=== PATIENT | female | born 1990 | race Caucasian/White ===

== ENCOUNTER 2023-05-29 08:51 | Outpatient (OUT) | payer BC, SELFPAY ==
--- NOTE | 2023-05-29 | US_ITS ---
The [address] [address] Patient Name: TATIANA MCCONNELL MRN: [id number] date: 1990 Sex: F Assigned Patient Location: US Current Patient Location: US Accession/Order Number: [id number] Exam Date: 05/29/2023 09:00 Report Date: 05/29/2023 10:01 At the request of: AMY CALLOWAY Procedure: US pelvis transvaginal EXAMINATION: US pelvis transvaginal HISTORY: PCOS E28.2 , infertility COMPARISON: No relevant comparison available. TECHNIQUE: Transabdominal and/or transvaginal sonographic examination was performed as indicated by examination type. FINDINGS: UTERUS: Normal size and appearance. Uterus size: 8.0 x 3.9 x 4.7 cm ENDOMETRIUM: Homogeneous echotexture with small amount of fluid within cavity versus cystic fluid collection. Endometrial thickness: 11 mm RIGHT OVARY: Contains a 2.7 cm diameter thick walled cystic structure with increased surrounding blood flow. Duplex Doppler demonstrates normal waveform and flow; resistive index 0.4. Ovary size: 3.6 x 3.3 x 3.2 cm LEFT OVARY: Normal size and appearance. Duplex Doppler demonstrates normal waveform and flow; resistive index 0.4. Ovary size: 2.7 x 1.7 x 1.6 cm CUL-DE-SAC: Unremarkable. No significant free fluid. BLADDER: Unremarkable. OTHER: None. US/US pelvis transvaginal IMPRESSION: 1. Right ovary contains a complex cyst; nonspecific but suggestive of a corpus lutein cyst. There is also fluid versus cyst within the endometrial cavity. Consider correlation with beta hCG levels. 2. No significant number of small peripheral follicles within ovaries to suggest polycystic ovarian syndrome. Electronically authenticated by: CATIA DENSON Date: 05/29/2023 10:01
[2023-05-29 10:06] LABS: Basophils Percent Auto 0.5 % (0.2-2.0); Eosinophils Absolute Auto 0.1 10^3/uL (0.0-0.7); Eosinophils Percent Auto 1.7 % (0.9-7.0); Hematocrit 40.1 % (36.0-48.0); Hemoglobin 13.1 g/dL (12.0-16.0); Immature Granulocytes Abs Auto 0.01 10^3/uL (0.00-0.03); Immature Granulocytes Pct Auto 0.2 % (0.0-0.5); Lymphocytes Absolute Auto 1.7 10^3/uL (1.2-3.8); Lymphocytes Percent Auto 26.5 % (20.5-60.0); Mean Corpuscular HGB Conc 32.7 g/dL (29.9-35.2); Mean Corpuscular Hemoglobin 28.2 pg (26.7-34.0); Mean Corpuscular Volume 86.4 fL (81.0-99.0); Mean Platelet Volume 8.6 fL (9.5-13.5); Monocytes Absolute Auto 0.4 10^3/uL (0.3-0.8); Monocytes Percent Auto 6.2 % (1.7-12.0); Neutrophils Absolute Auto 4.1 10^3/uL (1.4-6.5); Neutrophils Percent Auto 64.9 % (43.0-75.0); Platelet Count 297 10^3/uL (150-450); Red Blood Count 4.64 10^6/uL (4.20-5.40); Red Cell Distribution Width 12.7 % (11.0-15.0); White Blood Count 6.3 10^3/uL (4.0-11.0)
[2023-05-29 10:33] LABS: Estimated Average Glucose 97 mg/dL
[2023-05-29 10:38] LABS: Free T4 0.73 ng/dL (0.76-1.46)
[2023-05-29 10:40] LABS: HCG Quantitative <1 mIU/mL; Thyroid Stimulating Hormone 4.333 uIU/mL (0.358-3.740)
[2023-05-30 04:07] LABS: DHEA-Sulfate 88.6 ug/dL (84.8-378.0); FSH 3.9 mIU/mL (.); Luteinizing Hormone(LH) 4.6 mIU/mL (.); Progesterone 12.2 ng/mL (.)
[2023-06-01 12:11] LABS: Anti-Mullerian Hormone (AMH) 1.68 ng/mL (.)
[2023-06-02 06:08] LABS: DHEA, Serum 217 ng/dL (31-701)
== END 2023-05-29 08:52 | disposition home or self-care (01) ==
LOC: US 08:58
PROVIDERS: Visit Provider Obstetrics & Gynecology
DX: E28.2 Polycystic ovarian syndrome (principal); N97.0 Female infertility associated with anovulation
CPT/HCPCS: 36415; 76830; 82626; 82627; 83001; 83002; 83036; 84144; 84439; 84443; 84702; 85025; 99999

== ENCOUNTER 2023-07-27 15:10 | Outpatient (OUT) | payer BC, SELFPAY ==
[2023-07-28 09:11] LABS: Progesterone 12.9 ng/mL (.)
== END 2023-07-27 15:11 | disposition home or self-care (01) ==
LOC: LAB 15:10
PROVIDERS: Visit Provider Obstetrics & Gynecology
DX: N97.0 Female infertility associated with anovulation (principal); N97.9 Female infertility, unspecified; E28.2 Polycystic ovarian syndrome
CPT/HCPCS: 36415; 84144

== ENCOUNTER 2023-08-21 15:59 | Outpatient (OUT) | payer BC, SELFPAY ==
--- OUTSIDE RECORDS SUMMARY | 2023-08-21 16:02 | XMS_ITS | CCD ---
Author Name Unknown Address [address] [facility] [address] [facility] [address] [place] [address] Organization [facility] Care Team Providers Care Regional Business Development Manager Name Role Phone No, Physician Primary Care Provider Unavailabl e RADHALON STALLWORTH FKavon Noriega Admitting Unavailabl e RADHA, LON Noriega Attending Unavailabl e NO, PHYSICIAN Primary Care Unavailable RADHA, LON F. SKavon Admitting Unavailabl e RADHA, LON FKavon Noriega Attending Unavailabl e NO, PHYSICIAN Primary Care Unavailable RADHA, LON F. Hari Attending Unavailabl e RADHA, LON F. Hari Attending Unavailabl e RADHALON FKavon Noriega Attending Unavailabl e RADHA, LON FKavon Noriega Attending Unavailabl e RADHA, LON FKavon SKavon Attending Unavailabl e RADHA, LON FKavon SKavon Attending Unavailabl e NO, PHYSICIAN Primary Care Unavailable Unavailable Primary Care Provider Unavailabl e ANGEL GILL Referring Unavailable CONNIE NORWOOD Referring Unavailable J LUIS VEGA Attending Unavailable NO, PHYSICIAN Primary Care Unavailable No, Physician Primary Care Provider Unavailabl e Medications Current Medications Medication Drug Class(es) Dates Sig (Normalized) Sig (Original) Vit-Fe Fumarate-FA ( VITAMIN PO) (2 sources) take 1 tablet by efraín th once daily Vit-Fe Fumarate-FA ( VITAMIN PO) Take 1 tablet by mouth daily 0 Active vitamin with Ca-Iron-FA 27-1 mg Tab (3 sources) take 1 tablet by efraín th once daily vitamin with Ca-Iron-FA 27-1 mg Tab Take 1 (one) tablet by mouth daily . 0 Active take 1 tablet by mouth once ed y vitamin with Ca-Iron-FA 27-1 mg Tab Take 1 tablet by mouth daily . 0 Active Completed/Discontinued Medications Medication Drug Class(es) Dates Sig (Normalized) Sig (Original) aluminum hydroxide 40 mg/ml / magnesium hydroxide 40 mg/ml / simethicone 4 mg/ml oral suspension (1 source) Start: 12-23-2019 End: 12-24-2019 take 30 mL by mouth every four hours as needed aluminum-magnesium hydroxide-simethicon e (MAALOX PLUS) 200-200-20 mg/5 mL suspension 30 mL calcium chloride 0.0014 meq/ml / potassium chloride 0.004 meq/ml / sodium chloride 0.103 meq/ml / sodium lactate 0.028 meq/ml injectable solution (2 sources) Start: 12-22-2019 End: 12-24-2019 lactated Ringers infusion diphenhydrAMINE (1 source) Histamine-1 Receptor Antagonist Start: 12-22-2019 End: 12-24-2019 take 25 mg intravenous route every six hours as needed 25 mg, Intravenous, Every 6 hours PRN, itching, Starting [facility] 12/22/19 at 1623, Sign and Release For itching while Epidural Orders in effect if nalbuphine (NUBAIN) ineffective or not ordered. For IV administration, give at a rate less than or equal to 25 mg/min diphenhydrAMINE (BENADRYL) oral solid 25 mg (1 source) Start: 12-23-2019 End: 12-24-2019 take 25 mg by mouth every six hours as needed diphenhydrAMINE (BENADRYL) oral solid 25 mg docusate sodium 100 mg oral capsule (1 source) Start: 12-23-2019 End: 12-24-2019 docusate sodium (COLACE) capsule 100 mg ferrous sulfate 325 mg oral tablet (1 source) Start: 12-23-2019 End: 12-24-2019 ferrous sulfate tablet 325 mg ibuprofen 400 mg oral tablet (1 source) Nonsteroidal Anti-inflammatory Drug Start: 12-23-2019 End: 12-24-2019 take 1 tablet by mouth every four hours as needed ibuprofen (ADVIL,MOTRIN) tablet 400 mg 1 ml nalbuphine hydrochloride 10 mg/ml injection (2 sources) Opioid Agonist/Antagonis t Start: 12-22-2019 End: 12-22-2019 nalbuphine (NUBAIN) 10 mg/mL injection - ADS Override Pull Start: 12-22-2019 End: 12-24-2019 take 10 mg intravenous route every two hours as needed nalbuphine (NUBAIN) injection 10 mg 2 ml ondansetron 2 mg/ml injection (1 source) Serotonin-3 Receptor Antagonist Start: 12-23-2019 End: 12-24-2019 take 4 mg intravenous route every six hours as needed 4 mg, Intravenous, Every 6 hours PRN, nausea, vomiting, Starting Thu12/23/19 at 0934, PACU to Post Procedure ondansetron (ZOFRAN-ODT) disintegrating tablet 4 mg (1 source) Start: 12-22-2019 End: 12-24-2019 take 1 tablet by mouth every six hours as needed ondansetron (ZOFRAN-ODT) disintegrating tablet 4 mg oxytocin in lactated ringers (PITOCIN) 20 unit/1,000 mL infusion (2 sources) Start: 12-22-2019 End: 12-23-2019 oxytocin in lactated ringers (PITOCIN) 20 unit/1,000 mL infusion Start: 12-22-2019 End: 12-24-2019 oxytocin in lactated ringers (PITOCIN) 20 unit/1,000 mL infusion oxytocin in lactated ringers (PITOCIN) 20 unit/1,000 mL infusion - ADS Override Pull (1 source) Start: 12-22-2019 End: 12-22-2019 oxytocin in lactated ringers (PITOCIN) 20 unit/1,000 mL infusion - ADS Override Pull vitamin with Ca-Iron-FA tablet 1 tablet (1 source) Start: 12-23-2019 End: 12-24-2019 vitamin with Ca-Iron-FA tablet 1 tablet 2 ml rho(d) immune globulin, human 750 unt/ml prefilled syringe (1 source) Human Immunoglobulin G Start: 12-23-2019 End: 12-23-2019 rho(d) immune globulin (RHOPHYLAC) injection 300 mcg rho(d) immune globulin (RHOPHYLAC) injection 300 mcg (1 source) Start: 12-23-2019 End: 12-24-2019 inject 300 ug by intramuscular injection every twenty-four hours as needed rho(d) immune globulin (RHOPHYLAC) injection 300 mcg 200 ml ropivacaine hydrochloride 2 mg/ml injection (1 source) Amide Local Anesthetic Start: 12-22-2019 End: 12-24-2019 Epidural, Continuous, Starting Danna 12/22/19 at 1715, Sign and Release Only the patient is permitted to push the PCEA button. Continous Infusion: 8 mL/hr PCEA Bolus Dose: 5 mL PCEA Bolus Lockout Interval: 15 minutes Number of Boluses per Hour: 4 simethicone 80 mg chewable tablet (1 source) Start: 12-23-2019 End: 12-24-2019 simethicone (MYLICON) chewable tablet 80 mg 1000 ml sodium chloride 9 mg/ml injection (2 sources) Start: 12-23-2019 End: 12-24-2019 sodium chloride 0.9% (NS) Start: 12-22-2019 End: 12-24-2019 sodium chloride (PF) (NS) fl ush 5 mL Problems Active Problems Problem Classification Problem Date Documented Da te Episodic/Chronic Female infertility (1 source) Anovulation; Translations: [Female infertility associated with anovulation] Chronic Immunizations and screening for infectious disease (1 source) Contact with and (suspected) exposure to other viral communicable diseases; Translations: [Suspected COVID-19 virus infection] Episodic Other nervous system disorders (1 source) Loss of taste; Translations: [Loss of taste] Episodic Other nervous system disorders (1 source) Loss of sense of smell; Translations: [Loss of smell] Episodic Unclassified (4 sources) Patient encounter status; Translations: [Encounter for elective induction of labor] Onset: 12-22-2019 12-22-2019 Viral infection (1 source) Viral disease; Translations: [Viral illness] Episodic Past or Other Problems Problem Classification Problem Date Documented Da te Episodic/Chronic Other and delivery including normal (1 source) Patient encounter status; Translations: [Encounter for supervision of normal , unspecified, unspecified trimester] Onset: 12-22-2019 12-22-2019 Episodic Results Test Name Value Interpretation Reference Range Facility [id number] 08-05-2020 SARS-CoV-2 Normal [facility] Comment on above: Performed By: #### C OVID #### [facility] [place] [address] [place] [id number] Remote Operations Producer: Eliezer Mitchell MD SARS-CoV-2 DETECTED [facility] Comment on above: Result Comment: The specimen is POSITIVE for SARS-Cov-2, the novel coronavirus associated with COVID-19. Jeevan SARS-CoV-2 for use on the Jeevan SynapSense0/8800 Systems is a real-time RT-PCR test intended for the qualitative detection of nucleic acids from SARS-CoV-2 in clinician-collected nasal, nasopharyngeal, and oropharyngeal swab specimens from individuals who meet COVID-19 clinical and/or epidemiological criteria. Jeevan SARS-CoV-2 is for use only under Emergency Use Authorization (EUA) in laboratories certified under Clinical Laboratory Improvement Amendments of 1988 (CLIA), 42 U.S.C. ?263a, that meet requirements to perform high or moderate complexity tests. An individual without symptoms of COVID-19 and who is not shedding SARS-CoV-2 virus would expect to have a negative (not detected) result in this assay. Fact sheet for Healthcare Providers: https://www.fda.gov/media/225328/download Fact sheet for Patients: https://www.fda.gov/media/099227/download METHODOLOGY: RT-PCR Results reported to the appropriate Health Department Performed By: #### C OVID #### [address] [id number] Remote Operations Producer: Eliezer Mitchell MD SARS-CoV-2,Rapid Normal [facility] Comment on above: Performed By: #### C OVID #### [facility] [place] [address] [place] [id number] Remote Operations Producer: Eliezer Mitchell MD SARS-CoV-2 Source .NASOPHARYNGEAL SWAB Normal [facility] Comment on above: Performed By: #### C OVID #### [address] [place] [address] Remote Operations Producer: Eliezer Mitchell MD [id number] 07-11-2020 SARS-CoV-2 Not Detected Normal Not Detected [facility] Comment on above: Result Comment: (NOT E) This nucleic acid amplification test was developed and its performance characteristics determined by [employer]. Nucleic acid amplification tests include PCR and TMA. This test has not been FDA cleared or approved. This test has been authorized by FDA under an Emergency Use Authorization (EUA). This test is only authorized for the duration of time the declaration that circumstances exist justifying the authorization of the emergency use of in vitro diagnostic tests for detection of SARS-CoV-2 virus and/or diagnosis of COVID-19 infection under section 564(b)(1) of the Act, 21 U.S.C. 360bbb-3(b) (1), unless the authorization is terminated or revoked sooner. When diagnostic testing is negative, the possibility of a false negative result should be considered in the context of a patient's recent exposures and the presence of clinical signs and symptoms consistent with COVID-19. An individual without symptoms of COVID- 19 and who is not shedding SARS-CoV-2 virus would expect to have a negative (not detected) result in this assay. Performed At: [facility] [address] [facility] [place] [id number] Sofiya Arthur MD Ph:[phone] Performed By: #### A COV #### [facility] [address] [place], [place] [id number] Remote Operations Producer: Shankar Beal MD CBC WITH AUTO DIFFERENTIALon 12-23-2019 Basophils (Bld) [#/Vol] 0.02 10*3/uL [facility] Basophils/100 WBC (Bld) 0.1 % [facility] Eosinophils (Bld) [#/Vol] 0.09 10*3/uL [facility] Eosinophils/100 WBC (Bld) 0.6 % [facility] Erythrocyte distribution width (RBC) [Entitic vol] 13.3 % 11.6 - 14.8 % [facility] Hematocrit (Bld) [Volume fraction] 33.0 % Low 36 - 46 % [facility] Hemoglobin (Bld) [Mass/Vol] 11.2 g/dL Low 12 - 16 g/dL [facility] Immature granulocytes (Bld) [#/Vol] 0.09 10*3/uL [facility] Immature granulocytes/100 WBC (Bld) 0.60 % [facility] Comment on above: The IG parameter is the percentage of metamyelocytes, myelocytes, and promyelocytes. Interpretation and review of laboratory results Abnormal [facility] Lymphocytes (Bld) [#/Vol] 1.62 10*3/uL [facility] Lymphocytes/100 WBC (Bld) 11.6 % [facility] MCH (RBC) [Entitic mass] 29.6 pg 26 - 34 pg [facility] MCHC (RBC) [Mass/Vol] 33.9 g/dL 31 - 37 g/dL [facility] MCV (RBC) [Entitic vol] 87.1 fL 80 - 100 fL [facility] Monocytes (Bld) [#/Vol] 1.03 10*3/uL High [facility] Monocytes/100 WBC (Bld) 7.4 % [facility] Neutrophils (Bld) [#/Vol] 11.10 10*3/uL High [facility] Neutrophils/100 WBC (Bld) 79.7 % [facility] Platelet mean volume (Bld) [Entitic vol] 8.9 fL Low 9 - 15.5 fL [facility] Platelets (Bld) [#/Vol] 231 10*3/uL [facility] RBC (Bld) [#/Vol] 3.79 10*6/uL Low [facility] WBC (Bld) [#/Vol] 13.95 10*3/uL [facility] RhIG Evaluationon 12-23-2019 Rh immune globulin candidate (yes/no) Ql RhIG Candidacy [facility] 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 Patient is a candidate for 1 vial of Rh Immune Globulin. [facility] Antibody Identificationon Blood group antibodies identified Nom Anti-Rhogam [facility] The anti-D detected in this patient is presumably caused by a recent Rh Immune Globulin injection.It is unlikely that this represents a clinically significant antibody. [facility] CBCon 12-22-2019 Erythrocyte distribution width (RBC) [Entitic vol] 13.1 % 11.6 - 14.8 % [facility] Hematocrit (Bld) [Volume fraction] 35.7 % Low 36 - 46 % [facility] Hemoglobin (Bld) [Mass/Vol] 12.6 g/dL 12 - 16 g/dL [facility] Interpretation and review of laboratory results Abnormal [facility] MCH (RBC) [Entitic mass] 29.9 pg 26 - 34 pg [facility] MCHC (RBC) [Mass/Vol] 35.3 g/dL 31 - 37 g/dL [facility] MCV (RBC) [Entitic vol] 84.8 fL 80 - 100 fL [facility] Platelet mean volume (Bld) [Entitic vol] 9.0 fL 9 - 15.5 fL [facility] Platelets (Bld) [#/Vol] 233 10*3/uL [facility] RBC (Bld) [#/Vol] 4.21 10*6/uL [facility] ealth WBC (Bld) [#/Vol] 15.15 10*3/uL High [facility] Draw [address] [place] Top Tubes (MH)on 12-22-2019 ABO and Rh group Nom (Bld) A Negative [facility] Blood group antibody screen Ql Positive [facility] Type and Screenon 12-22-2019 ABO and Rh group Nom (Bld) A Negative [facility] Blood group antibody screen Ql Positive [facility] Specimen Expires 12/25/2019 23:59 EST [facility] Vital Signs Date Time Vital Sign Value Performing Clinician Faci lity 12-24-2019 08:13-0400 Body Temperature 97.59 [degF] [facility] 12-24-2019 08:13-0400 BP Diastolic 67 mm[Hg] [facility] 12-24-2019 08:13-0400 BP Systolic 110 mm[Hg] [facility] 12-24-2019 08:13-0400 Pulse (Heart Rate) 78 /min [facility] 12-24-2019 08:13-0400 Pulse Oximetry 98 % [facility] 12-24-2019 08:13-0400 Respiratory Rate 18 /min [facility] 12-22-2019 11:30-0400 BMI (Body Mass Index) 33.41 kg/m2 [facility] 12-22-2019 11:30-0400 Body weight 93.89 kg [facility] 12-22-2019 11:30-0400 Height 167.6 cm [facility] 12-21-2019 16:03-0400 BMI (Body Mass Index) 33.73 kg/m2 [facility] 12-21-2019 16:03-0400 Body weight 94.8 kg [facility] 12-21-2019 16:03-0400 Height 167.6 cm [facility] 12-21-2019 16:02-0400 Body [facility] 99.19 [degF[facility] 12-21-2019 16:02-0400 BP Diastolic 78 mm[Hg] Lon Garcia [facility] 12-21-2019 16:02-0400 BP Systolic 115 mm[Hg] Lon Garcia [facility] 12-21-2019 16:02-0400 Pulse (Heart Rate) 92 /min Lon Garcia [facility] 12-21-2019 16:02-0400 Pulse Oximetry 98 % Lon Garcia [facility] 12-21-2019 16:02-0400 Respiratory Rate 18 /min Lonsahara Garcia [facility] Encounters Encounter Date Encounter Type Care Provider Facility Start: 08-25-2022 Orders Only Dina Johnston CNM Work Phone: [facility] Comment on above: Anovulation (Primary Dx) Start: 04-04-2022 ambulatory [facility] Start: 08-04-2020 End: 08-05-2020 Patient encounter procedure [facility] Start: 08-04-2020 End: 08-04-2020 Subsequent hospital visit by physician [facility] Comment on above: Suspected COVID-19 v irus infection; Loss of taste; Loss of smell Start: 07-09-2020 End: 07-10-2020 Patient encounter procedure ANGEL R [facility] Start: 07-09-2020 End: 07-09-2020 Subsequent hospital visit by physician [facility] Comment on above: Viral illness Start: 02-06-2020 End: 02-07-2020 Patient encounter procedure LON PhamKavon GARCIA [facility] Start: 12-22-2019 End: 12-24-2019 [facility] Start: 12-22-2019 End: 12-24-2019 Evaluation and management of inpatient Lonsahara BarajasKavon IbarraRadha Work Phone: [facility] Start: 12-21-2019 End: 12-21-2019 Patient encounter procedure LON Aleyda BarajasKavon [facility] Start: 12-21-2019 End: 12-21-2019 Subsequent hospital visit by physician Lon Garcia Work Phone: [facility] Start: 11-18-2019 End: 11-18-2019 Patient encounter procedure LON Noriega [facility] Start: 09-27-2019 End: 09-27-2019 Patient encounter procedure LONSAHARA Noriega [facility] Start: 07-19-2019 End: 07-20-2019 Patient encounter procedure LONSAHARA Noriega [facility] Start: 06-10-2019 End: 06-16-2019 Patient encounter procedure LONSAHARA Noriega [facility] Procedures Date Procedure Procedure Detail Performing Clinician Start: 08-04-2020 COVID-19 AMBULATORY JERAMIE GILL Start: 07-09-2020 COVID-19 AMBULATORY JERAMIE GILL Start: 02-03-2020 Microscopic observat ion [Identifier] in Cervix by Cyto stain Dina WEBER Work Phone: Start: 12-23-2019 Complete blood count with white cell differential, automated Celi Mayer Work Phone: Start: 12-23-2019 Complete blood count with white cell differential, manual Celi Mayer Work Phone: Start: 12-22-2019 Antibody id rbc anti bodies ea panel ea serum tq Lon Garcia Work Phone: Start: 12-22-2019 Blood typing serologic abo Lon Garcia Work Phone: Start: 12-22-2019 RhoGam candidate (yes/no) Lon Garcia Work Phone: Start: 12-22-2019 Blood type and Indir ect antibody screen panel - Blood Lon Garcia Work Phone: Start: 12-22-2019 Complete blood count (hemogram) panel - Blood by Automated count Lon Garcia Work Phone: Plan of Treatment Date Care Activity Detail Author Start: 08-19-2023 History and physical examination, annual for health maintenance Wellness Visit [facility] Start: 02-02-2023 Screening for malign ant neoplasm of cervix Pap Smear [facility] Start: 09-18-2022 End: 08-25-2023 Progesterone [Mass/volume] in Serum or Plasma Progesterone Lab Routine Anovulation Expected: 09/18/2022 (Approximate), Expires: 08/25/2023 [facility] Work Phone: Comment on above: Expected: 09/18/2022 (Approximate), Expires: 08/25/2023 Start: 04-17-2022 Influenza vaccination Sequenti al Influenza Vaccine (#1) [facility] Start: 04-17-2020 Influenza vaccination Flu vaccine (# 1) [place], [place] Start: 2012 Screening for malign ant neoplasm of cervix Cervical cancer screen [place], [place] Start: 2010 DTaP/Tdap/Td vaccine (1 - Tdap) DTaP/Tdap/Td vaccine (1 - Tdap) [place], [place] Start: 2009 Hepatitis C screening Hepatitis C Sc reening [facility] Start: 2006 HIV screening HIV screen [place], [place] Start: 2003 Depression screening using PHQ-9 (Patient Health Questionnaire 9) score Depression Screening (PHQ-2/9) [facility] Start: 1992 Varicella vaccine (1 of 2 - 2-dose childhood series) Varicella vaccine (1 of 2 - 2-dose childhood series) [place], [place] Start: 04-09-1992 COVID-19 Vaccine (#1) COVID-19 Vacci ne (#1) [facility] Start: 1991 Tetanus vaccination Tetanus: Every 1 0yrs [facility] End: 07-09-2020 COVID-19 Ambulatory COVID-19 Ambulatory Lab Routine Viral illness 1 Occurrences starting 07/09/2020 until 07/09/2020 [place], [place] Comment on above: 1 Occurrences starti ng 07/09/2020 until 07/09/2020 COVID-19 Ambulatory [place], [place] End: 08-04-2020 Covid-19 Ambulatory Covid-19 Ambulatory Lab Routine Suspected COVID-19 virus infection Loss of taste Loss of smell 1 Occurrences starting 08/04/2020 until 08/04/2020 [place], [place] Comment on above: 1 Occurrences starti ng 08/04/2020 until 08/04/2020 Immunizations Immunization Date Immunization Notes Care Provider Lyudmila colby 12-23-2019 diphtheria, tetanus toxoids and acellular pertussis vaccine, unspecified formulation Lonsahara IbarraRadha [facility] 12-23-2019 measles, mumps and r ubella virus vaccine Lon [facility] 12-23-2019 varicella zoster immune globulin Dominique r [facility] Payers Date Payer Category Payer Unknown [employer] OUT OF STATE [facility] xxxxxxxxxxxxxxx 2018-Present xxxxxxxxxxxxxxx [id number] 2018 Unknown [id number] 2018 Unknown [employer] OUT OF [place] [facility] [id number] 2018-Present [phone] [address] [place] [address] [id number] 1991 Unknown [id number] 1991 Unknown [id number] 1991 Unknown [id number] 1991 Unknown [id number] 1991 Unknown [id number] 1991 Unknown [id number] 1991 Unknown [id number] 1991 Unknown [id number] 1991 Unknown [id number] 1991 Unknown [id number] 1991 Unknown [id number] Social History Date Type Detail Facility Start: 12-21-2019 End: 08-19-2022 Tobacco smoking status NHIS Never smoker [facility] Start: 12-21-2019 End: 08-21-2022 Alcohol intake Ex-drinker (finding) [facility] Start: 03-31-2019 [facility] Start: 1990 [facility] Start: 08-08-2022 End: 08-18-2022 Exposure to SARS-CoV-2 (event) Not sure [facility] Start: 07-09-2020 End: 08-19-2022 Tobacco use and exposure Never used [employer] Start: 07-09-2020 End: 08-04-2020 Alcohol intake Current non-drinker of alcohol (finding) [employer] Evaluation note Note Date & Type Note Facility Evaluation note Diagnosis Anovulation- Primary Female infertility associated with anovulation documented in this encounter [facility] Advance Directives Documents on File Type Date Recorded Patient Customer Field Representative Expl anation Advance Directives and Livin g Will 12/21/2019 4:16 PM Documents on File Type Date Recorded Patient Customer Field Representative Expl anation Advance Directives and Livin g Will 12/22/2019 4:16 PM Latest Code Status on File Code Status Date Activated Date Inactivated Comments Full Code 12/23/2019 9:34 AM 12/24/2019 3:33 PM Full Code 12/22/2019 11:42 AM 12/23/2019 9:33 AM Documents on File Type Date Recorded Patient Customer Field Representative Expl anation ACP-Advance Directive ACP-Power of Technical Consultant Latest Code Status on File Code Status Date Activated Date Inactivated Comments Full Code 12/23/2019 9:34 AM 12/24/2019 3:33 PM Code Status History Code Status Date Activated Date Inactivated Comments Full Code 12/22/2019 11:42 AM 12/23/2019 9:33 AM Hospital Course * Celi Mayer DO - 12/24/2019 9:10 AM EDT DISCHARGE SUMMARY Patient: Leatha Real Date of : 1990 Site: [facility] Family Provider: Physician Mar Admit Date: 12/22/2019 Discharge Date/Time: 12/24/19 Midday Disposition: Home Clinical Summary Hospital Course: Leatha Real is a 29 y.o. female patient of Physician Mar with a history of term IUP admitted for labor management. of viable , no complications. GBS negative. RH negative. Discharge Diagnoses: S/P at term, viable infant, no complications. Surgeries: None Consults: No orders of the defined types were placed in this encounter. Allergies: Patient has no known allergies. Discharge Diet: Condition: Good Discharge Medications: Current Discharge Medication List CONTINUE these medications which have NOT CHANGED Details vitamin with Ca-Iron-FA 27-1 mg Tab Take 1 tablet by mouth daily . Physician(s) Family Provider: Physician Mar, Phone: None Address: [facility] Follow Up: No follow-up provider specified. Additional Information: Pelvic rest, follow-up in 4-6 weeks. Patient instructions, including activity, were given to the patient/family at discharge. Please seethe After Visit Summary in the electronic medical record for details. Time spent on discharge: < 30 minutes Completed by: Celi Mayer DO on 05/09/20, 9:10 AM documented in this encounter Discharge Instructions * Instructions* Dilma Reynoso RN - 12/24/2019 Refer to A guide to caring for yourself and your baby book Diet : Regular diet with high fiber, bran, fresh fruit, vegetables, and lean meats. Keep yourself well hydrated with water and juices. Activities : Limit car riding and shopping for the first two weeks. You may use stairs with caution. NO intercourse until your visit. NO tampons or douching. Medications : As prescribed by your physician. Continue with vitamins until gone. Use Extra Strength Tylenol or Ibuprofen for discomfort if needed. Episiotomy Care : Continue to use analgesic spray and tucks as directed. Use Zahra- bottle as instructed (ie after each voiding or bowel movement) Sitz baths as need - this may be 2-3 times per day for comfort. Notify physicians or OB dept if episiotomy appears red and infected, develops worsening pain, drains or edges separate. For extended episiotomy, take stool softener as directed. Breast Care : mothers - Wear supportive bra. Use Vitamin E or tea bags for sore nipples. Be aware of signs and symptoms of infection - including localized pain, redness, drainage, firmness. Continue Vitamins throughout . Bottle feeding mothers - Wear clean supportive bra. Use ice packs to suppress milk engorgenment the first 48-72 hours after delivery. Warning Signs : Fever (Temp greater than 101 degrees F). Heavy vaginal bleeding with passage of large clots or foul smelling drainage. Severe abdominal pain or discomfort. Persistant nausea and vomiting. Call the OB Dept ([phone]) for any questions, problems or concerns. Follow-up : Call our office at [phone] within the first week to schedule a 6 week checkup. THANK YOU : DR GARCIA WELL [facility] AND ITS OB NURSES AND STAFF WOULD LIKE TO THANK YOU FOR ALLOWING US TO BE A PART OF YOUR CARE. documented in this encounter History of Present Illness * Celi Mayer DO - 12/24/2019 9:09 AM EDT Patient seen and evaluated this AM, doing very well. . VSS PPD#2 D/C to home. JRV * Celi Mayer DO - 12/23/2019 8:48 AM EDT Patient seen and evaluated this AM, doing very well. No complaints. Ambulating, urinating, tolerating regular diet. . VSS PPD#1 Continue routine PP care. Likely home tomorrow morning. JRV documented in this encounter Assessments Diagnosis Encounter for elective induction of labor Diagnosis Viral illness Unspecified viral infection, in conditions classified elsewhere and of unspecified site Diagnosis Suspected COVID-19 virus infection Loss of taste Disturbances of sensation of smell and taste Loss of smell Disturbances of sensation of smell and taste Summary Purpose Family History No Family History Records FoundNo Family History Records FoundNo Family History Records FoundNo Family History Records Found Additional Source Comments Reason for Visit (unrecogniz ed section and content) Reason Comments Abdominal Pain cramping since 12/19 1 600 Reason Comments Scheduled Induction augmentation Status Reason Specialty Diagnoses / Procedures Referre d By Contact Referred To Contact Lon Garcia MD - 12/22/2019 11:27 AM EDT H&P Notes (unrecognized sect ion and content) OBSTETRIC HISTORY AND PHYSICAL Chief complaint: at 40 weeks gestation, patient in labor. History of present illness: The patient is a 29-year-old 1 female. Her last menstrual period was March 162018, giving her a due date of December 212019. Her due date was confirmed by an 8-week ultrasound. Her course was essentially uncomplicated. At 30 weeks gestation sonar estimated weight was in the 30th percentile. Group B strep is negative. Also she is blood type A-. She did receive RhoGam at 28 weeks gestation. She presented to her office appointment this morning complaining of contractions. At that point her cervix had changed from 50% effaced and closed to 90% and 2 with bloody show. Past medical history: Chronic illnesses: None. Allergies: No known drug allergies. Medications: vitamins. Surgeries: None. Social history: She is . She works full-time. She denies use of alcohol cigarettes or illicit drugs. Family history: Positive for diabetes in her father and hypertension in her father. Negative for heart disease, renal disease, bleeding disorders. Review of systems: Negative for fever, chills, cough, recent exposure to COVID- 19, headaches, visual changes, epigastric pain, vaginal bleeding, dysuria, hematuria. Physical examination: She is well-appearing, she seems uncomfortable when she has her contractions. 5 feet 6 inches. 207 pounds. Pulse of 80. Respiratory rate 16. Temperature 98.8. And blood pressure is 135/81. Head eyes ears nose and throat are within normal limits. Neck is supple. Chest is clear. Heart shows regular rate and rhythm. Breasts are without lesions. She has no adenopathy. Back shows no costovertebral angle tenderness. Abdomen is gravid and nontender with a fundal height of 36 cm. Extremities are without edema. External genitalia is normal except there is a little bloody show. Cervix is 90% effaced, 2 cm dilated, and a -2 station, with a cephalic presentation. Assessment and plan: This is a 29-year-old female 40 weeks gestation in labor with her first . I anticipate a vaginal delivery. We may augment her labor. documented in this encounter Plan of Care - Dilma Reynoso RN - 12/24/2019 9:28 AM EDTPlan of Care - Liana Abebe RN - 12/24/2019 2:51 AM EDTPlan of Care - Alaina Miller RN - 12/22/2019 11:38 PM EDT Miscellaneous Notes (unrecog nized section and content) Poc and edu completed. Plan for d/c today Patient doing well bonding with and asking questions. Appears comfortable and confident with and after using nipple shield for about 12-16 hours, has now been getting to latch well and stay on without it for the past 3 feedings. Patient has been getting up and caring for self with minimal to no complaints of pain. Reviewed steps on keeping sutures clean and methods of pain management. Vitals stable, and patient up ambulating well and often around room, doing well with self-care. Plan to discharge today, so will finish up discharge teaching on day shift. POC continued, mother and infant bonding well, initiated and mother educated on signs and feeding cues of ready to breastfeed along with peritoneal care. All interventions continued at this time. Vaginal Delivery Note Diagnosis: Active Problems: Encounter for elective induction of labor Farhan Baby Girl Leatha [[id number]] Delivery Anesthesia No data filed Operative Delivery No data filed Shoulder Dystocia No data filed Presentation Presentation: Vertex Randolph Information date/time: 12/22/19 1717 Gender: Female Delivery type: Vaginal, Spontaneous Delivery location: OB Unit Initial disposition: Routine NB Care Details: Delivery Providers Delivering clinician: Lon Garcia MD Other personnel: Provider Role Covering Attending Resident Medical Radiation Dosimetrist Alaina Miller RN Delivery Nurse Taty Matos RN Registered Nurse Delivery Assist Nurse Practitioner Cord No data filed Placenta Date/time: 12/22/2019 1721 Removal: Spontaneous Appearance: Intact Disposition: Refrigerator Apgars No data filed Measurements Weight: Lacerations No data filed Other Procedures No data filed Poc initiated documented in this encounter INFORMATION SOURCE (unrecogn ized section and content) DATE CREATED AUTHOR 01/01/2020 [facility] DATE CREATED AUTHOR AUTHOR'S ORGANIZ ATION 04/11/2020 [facility] DATE CREATED AUTHOR AUTHOR'S ORGANIZ ATION 08/05/2020 [facility] DATE CREATED AUTHOR AUTHOR'S ORGANIZ ATION 04/10/2022 [facility] Care Teams (unrecognized sec tion and content) Regional Business Development Manager Relationship Specialty Start Date End Date No, Physician [facility] PCP - General 12/21/19 FOR RECORDS PERTAINING TO PATIENTS WHO ARE OR HAVE BEEN ENROLLED IN A CHEMICAL DEPENDENCY/SUBSTANCEABUSE PROGRAM, SOME INFORMATION MAY BE OMITTED. This clinical summary was aggregated from multiple sources. Caution should be exercised in using it in the provision of clinical care. This summary normalizes information from multiple sources, and as a consequence, information in this document may materially change the coding, format and clinical context of patient data. In addition, data may be omitted in some cases. CLINICAL DECISIONS SHOULD BE BASED ON THE PRIMARY CLINICAL RECORDS. [facility] [email or web address] [facility]. provides no warranty or guarantee of the accuracy or completeness of information in this document.
[2023-08-23 10:08] LABS: Progesterone 26.3 ng/mL (.)
== END 2023-08-21 16:00 | disposition home or self-care (01) ==
LOC: LAB 15:59
PROVIDERS: Visit Provider Obstetrics & Gynecology
DX: N97.0 Female infertility associated with anovulation (principal); N97.9 Female infertility, unspecified; E28.2 Polycystic ovarian syndrome
CPT/HCPCS: 36415; 84144

== ENCOUNTER 2023-09-03 10:53 | Outpatient (OUT) | payer BC, SELFPAY ==
--- OUTSIDE RECORDS SUMMARY | 2023-09-03 10:10 | XMS_ITS | CCD ---
Author Name Unknown Address [address] [facility] [address] [place] [address] Organization [facility] Care Team Providers Care Mission Analyst Name Role Phone No, Physician Primary Care Provider Unavailabl e RADHALON STALLWORTH FKavon Noriega Admitting Unavailabl e RADHA, LON Norieag Attending Unavailabl e NO, PHYSICIAN Primary Care Unavailable RADHA, LON F. SKavon Admitting Unavailabl e RADHA, LON FKavon Noriega Attending Unavailabl e NO, PHYSICIAN Primary Care Unavailable RADHA, LON F. Hari Attending Unavailabl e RADHA, LON F. Hari Attending Unavailabl e RADHALON FKavon Noriega Attending Unavailabl e RADHA, LON FKavon Noriega Attending Unavailabl e RADHA, LON FKavon SKavon Attending Unavailabl e RADHALON FKavon SKavon Attending Unavailabl e NO, PHYSICIAN [...] Intravenous, Every 6 hours PRN, itching, Starting [facility] 12/22/19 at 1623, Sign and Release For [...] Test Name Value Interpretation Reference Range Facility [id number] 08-05-2020 SARS-CoV-2 Normal [facility] Comment on above: Performed By: #### C OVID #### [employer] [address] [place] [address] Floorleader: Eliezer Mitchell MD SARS-CoV-2 DET[facility]ED [facility] Comment on above: Result Comment: The specimen is POSITIVE for SARS-Cov-2, the novel coronavirus associated with COVID-19. [employer] SARS-CoV-2 for use on the [employer] is a real-time RT-PCR test intended [...] this assay. Fact sheet for Healthcare Providers: https://www.fda.gov/media/859132/download Fact sheet for Patients: https://www.fda.gov/media/158470/download METHODOLOGY: RT-PCR Results reported to the appropriate Health Department Performed By: #### C OVID #### [address] [id number] Floorleader: Eliezer Mitchell MD SARS-CoV-2,Rapid Normal [facility] Comment on above: Performed By: #### C OVID #### [facility] [employer] [address] [place] [address] Floorleader: Eliezer Mitchell MD SARS-CoV-2 Source .NASOPHARYNGEAL SWAB Normal [facility] Comment on above: Performed By: #### C OVID #### [address] [place] [address] Floorleader: Eliezer Mitchell MD [id number] 07-11-2020 SARS-CoV-2 Not Detected Normal Not Detected [facility] Comment on above: Result Comment: (NOT E) This nucleic acid amplification test was developed and its performance characteristics determined by [employer]. Nucleic acid amplification tests include PCR and [...] result in this assay. Performed At: [facility] [address] [facility] [place] [id number] Sofiya Arthur MD Ph:[phone] Performed By: #### A COV #### [facility] [address] [place], [place] [id number] Floorleader: Shankar Beal MD CBC WITH AUTO DIFFERENTIALon 12-23-2019 Basophils (Bld) [#/Vol] 0.02 10*3/uL [facility] Basophils/100 WBC (Bld) 0.1 % [facility] Eosinophils (Bld) [#/Vol] 0.09 10*3/uL [facility] Eosinophils/100 WBC (Bld) 0.6 % [facility] Erythrocyte distribution width (RBC) [Entitic vol] 13.3 % 11.6 - 14.8 % [facility] Hematocrit (Bld) [Volume fraction] 33.0 % Low 36 - 46 % [facility] Hemoglobin (Bld) [Mass/Vol] 11.2 g/dL Low 12 - 16 g/dL [facility] Immature granulocytes (Bld) [#/Vol] 0.09 10*3/uL [facility] Immature granulocytes/100 WBC (Bld) 0.60 % [facility] Comment on above: The IG parameter is the percentage of metamyelocytes, myelocytes, and promyelocytes. Interpretation and review of laboratory results Abnormal [facility] Lymphocytes (Bld) [#/Vol] 1.62 10*3/uL [facility] Lymphocytes/100 WBC (Bld) 11.6 % [facility] MCH (RBC) [Entitic mass] 29.6 pg 26 - 34 pg [facility] MCHC (RBC) [Mass/Vol] 33.9 g/dL 31 - 37 g/dL [facility] MCV (RBC) [Entitic vol] 87.1 fL 80 - 100 fL [facility] Monocytes (Bld) [#/Vol] 1.03 10*3/uL High [facility] Monocytes/100 WBC (Bld) 7.4 % [facility] Neutrophils (Bld) [#/Vol] 11.10 10*3/uL High [facility] Neutrophils/100 WBC (Bld) 79.7 % [facility] Platelet mean volume (Bld) [Entitic vol] 8.9 fL Low 9 - 15.5 fL [facility] Platelets (Bld) [#/Vol] 231 10*3/uL [facility] RBC (Bld) [#/Vol] 3.79 10*6/uL Low [facility] WBC (Bld) [#/Vol] 13.95 10*3/uL [facility] RhIG Evaluationon 12-23-2019 Rh immune globulin candidate (yes/no) Ql RhIG Candidacy [facility] 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 Patient is a candidate for 1 vial of Rh Immune Globulin. [facility] Antibody Identificationon Blood group antibodies identified Nom Anti-Rhogam [facility] The anti-D detected in this patient is presumably caused by a recent Rh Immune Globulin injection.It is unlikely that this represents a clinically significant antibody. [facility] CBCon 12-22-2019 Erythrocyte distribution width (RBC) [Entitic vol] 13.1 % 11.6 - 14.8 % [facility] Hematocrit (Bld) [Volume fraction] 35.7 % Low 36 - 46 % [facility] Hemoglobin (Bld) [Mass/Vol] 12.6 g/dL 12 - 16 g/dL [facility] Interpretation and review of laboratory results Abnormal [facility] MCH (RBC) [Entitic mass] 29.9 pg 26 - 34 pg [facility] MCHC (RBC) [Mass/Vol] 35.3 g/dL 31 - 37 g/dL [facility] MCV (RBC) [Entitic vol] 84.8 fL 80 - 100 fL [facility] Platelet mean volume (Bld) [Entitic vol] 9.0 fL 9 - 15.5 fL [facility] Platelets (Bld) [#/Vol] 233 10*3/uL [facility] RBC (Bld) [#/Vol] 4.21 10*6/uL [facility] WBC (Bld) [#/Vol] 15.15 10*3/uL High [facility] Draw 4 Ricardo [employer] (MH)on 12-22-2019 ABO and Rh group Nom (Bld) A Negative [facility] Blood group antibody screen Ql Positive [facility] Type and Screenon 12-22-2019 ABO and Rh group Nom (Bld) A Negative [facility] Blood group antibody screen Ql Positive [facility] Specimen Expires 12/25/2019 23:59 EST [facility] Vital Signs Date Time Vital Sign Value Performing Clinician Faci lity 12-24-2019 08:13-0400 Body Temperature 97.59 [degF] [facility] 12-24-2019 08:13-0400 BP Diastolic 67 mm[Hg] [facility] 12-24-2019 08:13-0400 BP Systolic 110 mm[Hg] [facility] 12-24-2019 08:13-0400 Pulse (Heart Rate) 78 /min [facility] 12-24-2019 08:13-0400 Pulse Oximetry 98 % [facility] 12-24-2019 08:13-0400 Respiratory Rate 18 /min [facility] 12-22-2019 11:30-0400 BMI (Body Mass Index) 33.41 kg/m2 [facility] 12-22-2019 11:30-0400 Body weight 93.89 kg [facility] 12-22-2019 11:30-0400 Height 167.6 cm [facility] 12-21-2019 16:03-0400 BMI (Body Mass Index) 33.73 kg/m2 [facility] 12-21-2019 16:03-0400 Body weight 94.8 kg [facility] 12-21-2019 16:03-0400 Height 167.6 cm [facility] 12-21-2019 16:02-0400 Body Temperature 99.19 [degF] [facility] 12-21-2019 16:02-0400 BP Diastolic 78 mm[Hg] Lon Garcia [facility] 12-21-2019 16:02-0400 BP Systolic 115 mm[Hg] Lon Garcia [facility] 12-21-2019 16:02-0400 Pulse (Heart Rate) 92 /min Lon Garcia [facility] 12-21-2019 16:02-0400 Pulse Oximetry 98 % Lon Garcia [facility] 12-21-2019 16:02-0400 Respiratory Rate 18 /min Lonsahara Garcia [facility] Encounters Encounter Date Encounter Type Care Provider Facility Start: 08-25-2022 Orders Only Dina Johnston CNM Work Phone: [facility] Obstetrics [facility] Gynecology Comment on above: Anovulation (Primary Dx) Start: 04-04-2022 ambulatory [facility] Start: 08-04-2020 End: 08-05-2020 Patient encounter procedure [facility] Start: 08-04-2020 End: 08-04-2020 Subsequent hospital visit by physician [facility] Comment on above: Suspected COVID-19 v irus infection; Loss of taste; Loss of smell Start: 07-09-2020 End: 07-10-2020 Patient encounter procedure ANGEL R [facility] Start: 07-09-2020 End: 07-09-2020 Subsequent hospital visit by physician [facility] Comment on above: Viral illness Start: 02-06-2020 End: 02-07-2020 Patient encounter procedure LON PhamKavon GARCIA [facility] Start: 12-22-2019 End: 12-24-2019 [facility] Start: 12-22-2019 End: 12-24-2019 Evaluation and management of inpatient Lonsahara BarajasKavon IbarraRadha Work Phone: [facility] Start: 12-21-2019 End: 12-21-2019 Patient encounter procedure LON Aleyda BarajasKavon [facility] Start: 12-21-2019 End: 12-21-2019 Subsequent hospital visit by physician Lon Garcia Work Phone: [facility] Start: 11-18-2019 End: 11-18-2019 Patient encounter procedure LON Noriega [facility] Start: 09-27-2019 End: 09-27-2019 Patient encounter procedure LONSAHARA Noriega [facility] Start: 07-19-2019 End: 07-20-2019 Patient encounter procedure LONSAHARA Noriega [facility] Start: 06-10-2019 End: 06-16-2019 Patient encounter procedure LONSAHARA Noriega [facility] Procedures Date Procedure Procedure Detail Performing [...] examination, annual for health maintenance Wellness Visit [facility] Start: 02-02-2023 Screening for malign ant neoplasm of cervix Pap Smear [facility] Start: 09-18-2022 End: 08-25-2023 Progesterone [Mass/volume] in Serum or Plasma Progesterone Lab Routine Anovulation Expected: 09/18/2022 (Approximate), Expires: 08/25/2023 [facility] Work Phone: Comment on above: Expected: 09/18/2022 (Approximate), Expires: 08/25/2023 Start: 04-17-2022 Influenza vaccination Sequenti al Influenza Vaccine (#1) [facility] Start: 04-17-2020 Influenza vaccination Flu vaccine (# 1) [place], [place] Start: 2012 Screening for malign ant neoplasm of cervix Cervical cancer screen [place], [place] Start: 2010 DTaP/Tdap/Td vaccine (1 - Tdap) DTaP/Tdap/Td vaccine (1 - Tdap) [place], [place] Start: 2009 Hepatitis C screening Hepatitis C Sc reening [facility] Start: 2006 HIV screening HIV screen [place], [place] Start: 2003 Depression screening using PHQ-9 (Patient Health Questionnaire 9) score Depression Screening (PHQ-2/9) [facility] Start: 1992 Varicella vaccine (1 of 2 - 2-dose childhood series) Varicella vaccine (1 of 2 - 2-dose childhood series) [place], [place] Start: 04-09-1992 COVID-19 Vaccine (#1) COVID-19 Vacci ne (#1) [facility] Start: 1991 Tetanus vaccination Tetanus: Every 1 0yrs [facility] End: 07-09-2020 COVID-19 Ambulatory COVID-19 Ambulatory Lab Routine Viral illness 1 Occurrences starting 07/09/2020 until 07/09/2020 [place] Comment on above: 1 Occurrences starti ng 07/09/2020 until 07/09/2020 COVID-19 Ambulatory [place], [place] End: 08-04-2020 Covid-19 Ambulatory Covid-19 Ambulatory Lab Routine Suspected COVID-19 virus infection Loss of taste Loss of smell 1 Occurrences starting 08/04/2020 until 08/04/2020 [place] Comment on above: 1 Occurrences starti ng 08/04/2020 until 08/04/2020 Immunizations Immunization Date Immunization Notes Care Provider Lyudmila colby 12-23-2019 diphtheria, tetanus toxoids and acellular pertussis vaccine, unspecified formulation Lonsahara IbarraRadha [facility] 12-23-2019 measles, mumps and r ubella virus vaccine Lon [facility] 12-23-2019 varicella zoster immune globulin Dominique r [facility] Payers Date Payer Category Payer Unknown [employer] BC[employer] OUT OF STATE [facility] xxxxxxxxxxxxxxx 2018-Present xxxxxxxxxxxxxxx [id number] 2018 Unknown [id number] 2018 Unknown [employer] BCBS OUT OF STATE [facility] [id number] 2018-Present [phone] [address] [place] [address] [id number] 1991 Unknown [id number] 1991 Unknown [id number] 1991 Unknown [id number] 1991 Unknown [id number] 1991 Unknown [id number] 1991 Unknown [id number] 1991 Unknown [id number] 1991 Unknown [id number] 1991 Unknown [id number] 1991 Unknown [id number] 1990 Unknown [id number] Social History Date Type Detail Facility Start: 12-21-2019 End: 08-19-2022 Tobacco smoking status NHIS Never smoker [facility] Start: 12-21-2019 End: 08-21-2022 Alcohol intake Ex-drinker (finding) [facility] Start: 03-31-2019 [facility] Start: 1990 [facility] Start: 08-08-2022 End: 08-18-2022 Exposure to SARS-CoV-2 (event) Not sure [facility] Start: 07-09-2020 End: 08-19-2022 Tobacco use and exposure Never used [facility] Start: 07-09-2020 End: 08-04-2020 Alcohol intake Current non-drinker of alcohol (finding) [facility] Evaluation note Note Date & Type Note Facility Evaluation note Diagnosis Anovulation- Primary Female infertility associated with anovulation documented in this encounter [facility] Advance Directives Documents on File Type Date Recorded Patient Enrichment Director Expl anation Advance Directives and Livin g Will 12/21/2019 4:16 PM Documents on File Type Date Recorded Patient Enrichment Director Expl anation Advance Directives and Livin g Will 12/22/2019 4:16 PM Latest Code Status on File Code Status Date Activated Date Inactivated Comments Full Code 12/23/2019 9:34 AM 12/24/2019 3:33 PM Full Code 12/22/2019 11:42 AM 12/23/2019 9:33 AM Documents on File Type Date Recorded Patient Enrichment Director Expl anation ACP-Advance Directive ACP-Power of Seat Cover Maker Latest Code Status on File Code Status Date Activated Date Inactivated Comments Full Code 12/23/2019 9:34 AM 12/24/2019 3:33 PM Code Status History Code Status Date Activated Date Inactivated Comments Full Code 12/22/2019 11:42 AM 12/23/2019 9:33 AM Hospital Course * Celi Mayer DO - 12/24/2019 9:10 AM EDT DISCHARGE SUMMARY Patient: Leatha Real Date of : 1990 Site: [facility] Family Provider: Physician Mar Admit Date: [...] Family Provider: Physician Mar, Phone: None Address: [facility] Follow Up: No follow-up provider specified. [...] nausea and vomiting. Call the OB Dept ([phone]) for any questions, problems or concerns. Follow-up : Call our office at [phone] within the first week to schedule a 6 week checkup. THANK YOU : DR GARCIA WELL [facility] OB NURSES AND STAFF WOULD [...] on day shift. POC continued, mother and bonding well, initiated and mother educated on signs and feeding cues of infant ready to breastfeed along with peritoneal care. All interventions continued at this time. Vaginal Delivery Note Diagnosis: Active Problems: Encounter for elective induction of labor Farhan Baby Girl Leatha [[id number]] Delivery Anesthesia No data filed Operative Delivery No data filed Shoulder Dystocia No data filed [place] Presentation Presentation: Vertex [place] Information date/time: 12/22/19 1717 Gender: Female Delivery type: Vaginal, Spontaneous Delivery location: OB Unit Initial disposition: Routine NB Care Details: Delivery Providers Delivering clinician: Lon Garcia MD Other personnel: Provider Role Covering Attending Resident Tar Roofer Alaina Miller RN Delivery Nurse Taty Matos RN Registered Nurse Delivery Assist Nurse Practitioner Cord No data filed Placenta Date/time: 12/22/2019 1721 Removal: Spontaneous Appearance: Intact Disposition: Refrigerator [place] Apgars No data filed [place] Measurements Weight: Lacerations No data filed Other Procedures No data filed Poc initiated documented in this encounter INFORMATION SOURCE (unrecogn ized section and content) DATE CREATED AUTHOR 01/01/2020 [facility] DATE CREATED AUTHOR AUTHOR'S ORGANIZ ATION 04/11/2020 [facility] DATE CREATED AUTHOR AUTHOR'S ORGANIZ ATION 08/05/2020 [facility] DATE CREATED AUTHOR AUTHOR'S ORGANIZ ATION 04/10/2022 [facility] Care Teams (unrecognized sec tion and content) Mission Analyst Relationship Specialty Start Date End Date No, Physician [facility] PCP - General 12/21/19 FOR RECORDS [...] BE BASED ON THE PRIMARY CLINICAL RECORDS. [facility] [employer] [facility]. provides no warranty or guarantee of the accuracy or completeness of information in this document.
--- NOTE | 2023-09-03 10:54 | FL_ITS ---
The [address] [address] Patient Name: TATIANA MCCONNELL MRN: [id number] date: 1990 Sex: F Assigned Patient Location: LAB Current Patient Location: LAB Accession/Order Number: [id number] Exam Date: 09/03/2023 11:50 Report Date: 09/03/2023 13:30 At the request of: AMY CALLOWAY Procedure: FL Hysterosal cath placement EXAMINATION: FL Hysterosal cath placement, FL hysterosalpingography HISTORY: Anovulation N97.0, Female Infertility N97.9 COMPARISON: No relevant comparison available. TECHNIQUE: The patient was informed of the nature of the procedure, alternatives and risks. Her questions were answered and she consented to proceed. A preliminary endovaginal ultrasound was performed. Subsequently, a sterile vaginal speculum was introduced and, following cleansing of the cervix, a balloon-tipped catheter was inserted into the endometrial cavity. Sterile saline was then introduced into the endometrial cavity via this catheter in concert with an endovaginal ultrasound exam. FINDINGS: UTERUS: Normal size, no visible lesions. ADNEXAE: Normal for age. OTHER: Delay in opacification of the fallopian tubes however eventually there was normal opacification of the tubes with spillage of contrast into the peritoneal cavity. This could represent debris within the tubes FL/FL Hysterosal cath placement IMPRESSION: Patent fallopian tubes with normal appearance of the endometrial cavity Electronically authenticated by: KELLY GILLIAM Date: 09/03/2023 13:30
--- NOTE | 2023-09-03 10:54 | FL_ITS ---
The [address] [address] Patient Name: TATIANA MCCONNELL MRN: [id number] date: 1990 Sex: F Assigned Patient Location: LAB Current Patient Location: LAB Accession/Order Number: [id number] Exam Date: 09/03/2023 11:50 Report Date: 09/03/2023 13:30 At the request of: AMY CALLOWAY Procedure: FL hysterosalpingography EXAMINATION: FL Hysterosal cath placement, FL hysterosalpingography HISTORY: Anovulation N97.0, Female Infertility N97.9 COMPARISON: No relevant comparison available. TECHNIQUE: The patient was informed of the nature of the procedure, alternatives and risks. Her questions were answered and she consented to proceed. A preliminary endovaginal ultrasound was performed. Subsequently, a sterile vaginal speculum was introduced and, following cleansing of the cervix, a balloon-tipped catheter was inserted into the endometrial cavity. Sterile saline was then introduced into the endometrial cavity via this catheter in concert with an endovaginal ultrasound exam. FINDINGS: UTERUS: Normal size, no visible lesions. ADNEXAE: Normal for age. OTHER: Delay in opacification of the fallopian tubes however eventually there was normal opacification of the tubes with spillage of contrast into the peritoneal cavity. This could represent debris within the tubes FL/FL hysterosalpingography IMPRESSION: Patent fallopian tubes with normal appearance of the endometrial cavity Electronically authenticated by: KELLY GILLIAM Date: 09/03/2023 13:30
--- OUTSIDE RECORDS SUMMARY | 2023-09-03 11:13 | XMS_ITS | CCD ---
Author Name Unknown Address [address] [place] [address] Organization [facility] Care Team Providers Care Hotbed Operator Name Role Phone No, Physician Primary Care Provider Unavailabl e RADHALON STALLWORTH FKavon Noriega Admitting Unavailabl e RADHA, LON Noriega Attending Unavailabl e NO, PHYSICIAN Primary Care Unavailable RADHA, LON F. SKavon Admitting Unavailabl e RADHA, LON FKavon Noriega Attending Unavailabl e NO, PHYSICIAN Primary Care Unavailable RADHA, LON F. Hari Attending Unavailabl e RADHA, LON F. Hari Attending Unavailabl e RADHALON FKavno Noriega Attending Unavailabl e RADHA, OLN FKavon Noriega Attending Unavailabl e RADHA, LON [...] Active take 1 tablet by mouth once de y vitamin with Ca-Iron-FA 27-1 mg Tab [...] Intravenous, Every 6 hours PRN, itching, Starting [facility] 12/22/19 at 1623, Sign and Release [...] Test Name Value Interpretation Reference Range Facility [id number] 08-05-2020 SARS-CoV-2 Normal [facility] Comment on above: Performed By: #### C OVID #### [employer] [address] [place] [id number] Cupola Repairer: Eliezer Mitchell MD SARS-CoV-2 DETECTED [facility] Comment on above: Result Comment: The specimen is POSITIVE for SARS-Cov-2, the novel coronavirus associated with COVID-19. [employer] SARS-CoV-2 for use on the [employer] Buzz3600/8800 Systems is a real-time RT-PCR test intended [...] this assay. Fact sheet for Healthcare Providers: https://www.fda.gov/media/636674/download Fact sheet for Patients: https://www.fda.gov/media/141965/download METHODOLOGY: RT-PCR Results reported to the appropriate Health Department Performed By: #### C OVID #### [address] [id number] Cupola Repairer: Eliezer Mitchell MD SARS-CoV-2,Rapid Normal [facility] Comment on above: Performed By: #### C OVID #### [facility] [address] [place] [id number] Cupola Repairer: Eliezer Mitchell MD SARS-CoV-2 Source .NASOPHARYNGEAL SWAB Normal [facility] Comment on above: Performed By: #### C OVID #### [id number] [place] [address] Cupola Repairer: Eliezer Mitchell MD [id number] 07-11-2020 SARS-CoV-2 Not Detected Normal Not Detected [facility] Comment on above: Result Comment: (NOT E) This nucleic acid amplification test was developed and its performance characteristics determined by [employer]. Nucleic acid amplification tests include PCR and [...] detected) result in this assay. Performed At: [facility] [address] [facility] [place] [id number] Sofiya Arthur MD Ph:[phone] Performed By: #### A COV #### [facility] [address] [place], [place] [id number] Cupola Repairer: Shankar Beal MD CBC WITH AUTO DIFFERENTIALon 12-23-2019 Basophils (Bld) [#/Vol] 0.02 10*3/uL [facility] Basophils/100 WBC (Bld) 0.1 % [facility] Eosinophils (Bld) [#/Vol] 0.09 10*3/uL [facility] Eosinophils/100 WBC (Bld) 0.6 % [facility] Erythrocyte distribution width (RBC) [Entitic vol] 13.3 % 11.6 - 14.8 % [facility] Hematocrit (Bld) [Volume fraction] 33.0 % Low 36 - 46 % [facility] Hemoglobin (Bld) [Mass/Vol] 11.2 g/dL Low 12 - 16 g/dL [facility] Immature granulocytes (Bld) [#/Vol] 0.09 10*3/uL [facility] Immature granulocytes/100 WBC (Bld) 0.60 % [facility] Comment on above: The IG parameter is the percentage of metamyelocytes, myelocytes, and promyelocytes. Interpretation and review of laboratory results Abnormal [facility] Lymphocytes (Bld) [#/Vol] 1.62 10*3/uL [facility] Lymphocytes/100 WBC (Bld) 11.6 % [facility] MCH (RBC) [Entitic mass] 29.6 pg 26 - 34 pg [facility] MCHC (RBC) [Mass/Vol] 33.9 g/dL 31 - 37 g/dL [facility] MCV (RBC) [Entitic vol] 87.1 fL 80 - 100 fL [facility] Monocytes (Bld) [#/Vol] 1.03 10*3/uL High [facility] Monocytes/100 WBC (Bld) 7.4 % [facility] Neutrophils (Bld) [#/Vol] 11.10 10*3/uL High [facility] Neutrophils/100 WBC (Bld) 79.7 % [facility] Platelet mean volume (Bld) [Entitic vol] 8.9 fL Low 9 - 15.5 fL [facility] Platelets (Bld) [#/Vol] 231 10*3/uL [facility] RBC (Bld) [#/Vol] 3.79 10*6/uL Low [facility] W[facility] (Bld) [#/Vol] 13.95 10*3/uL [facility] RhIG Evaluationon 12-23-2019 Rh immune globulin candidate (yes/no) Ql RhIG Candidacy [facility] 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 Patient is a candidate for 1 vial of Rh Immune Globulin. [facility] Antibody Identificationon Blood group antibodies identified Nom Anti-Rhogam [facility] The anti-D detected in this patient is presumably caused by a recent Rh Immune Globulin injection.It is unlikely that this represents a clinically significant antibody. [facility] CBCon 12-22-2019 Erythrocyte distribution width (RBC) [Entitic vol] 13.1 % 11.6 - 14.8 % [facility] Hematocrit (Bld) [Volume fraction] 35.7 % Low 36 - 46 % [facility] Hemoglobin (Bld) [Mass/Vol] 12.6 g/dL 12 - 16 g/dL [facility] Interpretation and review of laboratory results Abnormal [facility] MCH (RBC) [Entitic mass] 29.9 pg 26 - 34 pg [facility] MCHC (RBC) [Mass/Vol] 35.3 g/dL 31 - 37 g/dL [facility] MCV (RBC) [Entitic vol] 84.8 fL 80 - 100 fL [facility] Platelet mean volume (Bld) [Entitic vol] 9.0 fL 9 - 15.5 fL [facility] Platelets (Bld) [#/Vol] 233 10*3/uL [facility] RBC (Bld) [#/Vol] 4.21 10*6/uL [facility] ealth WBC (Bld) [#/Vol] 15.15 10*3/uL [facility] Draw 4 [employer] (MH)on 12-22-2019 ABO and Rh group Nom (Bld) A Negative [facility] Blood group antibody screen Ql Positive [facility] Type and Screenon 12-22-2019 ABO and Rh group Nom (Bld) A Negative [facility] Blood group antibody screen Ql Positive [facility] Specimen Expires 12/25/2019 23:59 EST [facility] Vital Signs Date Time Vital Sign Value Performing Clinician Faci lity 12-24-2019 08:13-0400 Body Temperature 97.59 [degF] [facility] 12-24-2019 08:13-0400 BP Diastolic 67 mm[Hg] [facility] 12-24-2019 08:13-0400 BP Systolic 110 mm[Hg] [facility] 12-24-2019 08:13-0400 Pulse (Heart Rate) 78 /min [facility] 12-24-2019 08:13-0400 Pulse Oximetry 98 % [facility] 12-24-2019 08:13-0400 Respiratory Rate 18 /min [facility] 12-22-2019 11:30-0400 BMI (Body Mass Index) 33.41 kg/m2 [facility] 12-22-2019 11:30-0400 Body weight 93.89 kg [facility] 12-22-2019 11:30-0400 Height 167.6 cm [facility] 12-21-2019 16:03-0400 BMI (Body Mass Index) 33.73 kg/m2 [facility] 12-21-2019 16:03-0400 Body weight 94.8 kg [facility] 12-21-2019 16:03-0400 Height 167.6 cm [facility] 12-21-2019 16:02-0400 Body Temperature 99.19 [degF] [facility] 12-21-2019 16:02-0400 BP Diastolic 78 mm[Hg] Lon Garcia [facility] 12-21-2019 16:02-0400 BP Systolic 115 mm[Hg] Lon Garcia [facility] 12-21-2019 16:02-0400 Pulse (Heart Rate) 92 /min Lon Garcia [facility] 12-21-2019 16:02-0400 Pulse Oximetry 98 % Lon Garcia [facility] 12-21-2019 16:02-0400 Respiratory Rate 18 /min Lonsahara Garcia [facility] Encounters Encounter Date Encounter Type Care Provider Facility Start: 08-25-2022 Orders Only Dina Johnston CNM Work Phone: [facility] Obstetrics and Gynecology Comment on above: Anovulation (Primary Dx) Start: 04-04-2022 ambulatory [facility] Start: 08-04-2020 End: 08-05-2020 Patient encounter procedure [facility] Start: 08-04-2020 End: 08-04-2020 Subsequent hospital visit by physician [facility] Comment on above: Suspected COVID-19 v irus infection; Loss of taste; Loss of smell Start: 07-09-2020 End: 07-10-2020 Patient encounter procedure ANGEL R [facility] Start: 07-09-2020 End: 07-09-2020 Subsequent hospital visit by physician [facility] Comment on above: Viral illness Start: 02-06-2020 End: 02-07-2020 Patient encounter procedure LON PhamKavon GARCIA [facility] Start: 12-22-2019 End: 12-24-2019 [facility]: 12-22-2019 End: 12-24-2019 Evaluation and management of inpatient Lonsahara BarajasKavon IbarraRadha Work Phone: [facility] Start: 12-21-2019 End: 12-21-2019 Patient encounter procedure LON Aleyda BarajasKavon [facility] Start: 12-21-2019 End: 12-21-2019 Subsequent hospital visit by physician Lon Garcia Work Phone: [facility] Start: 11-18-2019 End: 11-18-2019 Patient encounter procedure LON Noriega [facility] Start: 09-27-2019 End: 09-27-2019 Patient encounter procedure LONSAHARA Noriega [facility] Start: 07-19-2019 End: 07-20-2019 Patient encounter procedure LONSAHARA Noriega [facility] Start: 06-10-2019 End: 06-16-2019 Patient encounter procedure LONSAHARA Noriega [facility] Procedures Date Procedure Procedure Detail Performing [...] examination, annual for health maintenance Wellness Visit [facility] Start: 02-02-2023 Screening for malign ant neoplasm of cervix Pap Smear [facility] Start: 09-18-2022 End: 08-25-2023 Progesterone [Mass/volume] in Serum or Plasma Progesterone Lab Routine Anovulation Expected: 09/18/2022 (Approximate), Expires: 08/25/2023 [facility] Work Phone: Comment on above: Expected: 09/18/2022 (Approximate), Expires: 08/25/2023 Start: 04-17-2022 Influenza vaccination Sequenti al Influenza Vaccine (#1) [facility] Start: 04-17-2020 Influenza vaccination Flu vaccine (# 1) [place], [place] Start: 2012 Screening for malign ant neoplasm of cervix Cervical cancer screen [place], [place] Start: 2010 DTaP/Tdap/Td vaccine (1 - Tdap) DTaP/Tdap/Td vaccine (1 - Tdap) [place] Start: 2009 Hepatitis C screening Hepatitis C Sc reening [facility] Start: 2006 HIV screening HIV screen [place], [place] Start: 2003 Depression screening using PHQ-9 (Patient Health Questionnaire 9) score Depression Screening (PHQ-2/9) [facility] Start: 1992 Varicella vaccine (1 of 2 - 2-dose childhood series) Varicella vaccine (1 of 2 - 2-dose childhood series) [place], [place] Start: 04-09-1992 COVID-19 Vaccine (#1) COVID-19 Vacci ne (#1) [facility] Start: 1991 Tetanus vaccination Tetanus: Every 1 0yrs [facility] End: 07-09-2020 COVID-19 Ambulatory COVID-19 Ambulatory Lab Routine Viral illness 1 Occurrences starting 07/09/2020 until 07/09/2020 [place] Comment on above: 1 Occurrences starti ng 07/09/2020 until 07/09/2020 COVID-19 Ambulatory [place], [place] End: 08-04-2020 Covid-19 Ambulatory Covid-19 Ambulatory Lab Routine Suspected COVID-19 virus infection Loss of taste Loss of smell 1 Occurrences starting 08/04/2020 until 08/04/2020 [place] Comment on above: 1 Occurrences starti ng 08/04/2020 until 08/04/2020 Immunizations Immunization Date Immunization Notes Care Provider Lyudmila colby 12-23-2019 diphtheria, tetanus toxoids and acellular pertussis vaccine, unspecified formulation Lonsahara IbarraRadha [facility] 12-23-2019 measles, mumps and r ubella virus vaccine Lon [facility] 12-23-2019 varicella zoster immune globulin Dominique r [facility] Payers Date Payer Category Payer Unknown [employer] BCBS OUT OF STATE [facility] xxxxxxxxxxxxxxx 2018-Present xxxxxxxxxxxxxxx [id number] 2018 Unknown [id number] 2018 Unknown [employer] BCBS OUT OF STATE [facility] [id number] 2018-Present [phone] [address] [place] [address] [id number] 1991 Unknown [id number] 1991 Unknown [id number] 1991 Unknown [id number] 1991 Unknown [id number] 1991 Unknown [id number] 1991 Unknown [id number] 1991 Unknown [id number] 1991 Unknown [id number] 1991 Unknown [id number] 1991 Unknown [id number] 1991 Unknown [id number] Social History Date Type Detail Facility Start: 12-21-2019 End: 08-19-2022 Tobacco smoking status NHIS Never smoker [facility] Start: 12-21-2019 End: 08-21-2022 Alcohol intake Ex-drinker (finding) [facility] Start: 03-31-2019 [facility] Start: 1990 [facility] Start: 08-08-2022 End: 08-18-2022 Exposure to SARS-CoV-2 (event) Not sure [facility] Start: 07-09-2020 End: 08-19-2022 Tobacco use and exposure Never used [facility] Start: 07-09-2020 End: 08-04-2020 Alcohol intake Current non-drinker of alcohol (finding) [facility] Evaluation note Note Date & Type Note Facility Evaluation note Diagnosis Anovulation- Primary Female infertility associated with anovulation documented in this encounter [facility] Advance Directives Documents on File Type Date Recorded 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 Advance Directives and Livin g Will 12/21/2019 4:16 PM Documents on File Type Date Recorded 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 Advance Directives and Livin g Will 12/22/2019 4:16 PM Latest Code Status on File Code Status Date Activated Date Inactivated Comments Full Code 12/23/2019 9:34 AM 12/24/2019 3:33 PM Full Code 12/22/2019 11:42 AM 12/23/2019 9:33 AM Documents on File Type Date Recorded 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 ACP-Advance Directive ACP-Power of Pharmacy Data Analyst Latest Code Status on File Code Status Date Activated Date Inactivated Comments Full Code 12/23/2019 9:34 AM 12/24/2019 3:33 PM Code Status History Code Status Date Activated Date Inactivated Comments Full Code 12/22/2019 11:42 AM 12/23/2019 9:33 AM Hospital Course * Celi Mayer DO - 12/24/2019 9:10 AM EDT DISCHARGE SUMMARY Patient: Leatha Real Date of : 1990 Site: [facility] Family Provider: Physician Mar Admit Date: [...] Family Provider: Physician Mar, Phone: None Address: [facility] Follow Up: No follow-up provider specified. Additional [...] nausea and vomiting. Call the OB Dept ([phone]) for any questions, problems or concerns. Follow-up : Call our office at [phone] within the first week to schedule a 6 week checkup. THANK YOU : DR GARCIA [facility] OB NURSES AND STAFF [...] induction of labor Farhan Baby Girl Leatha [[id number]] Delivery Anesthesia No data filed Operative Delivery No data filed Shoulder Dystocia No data filed [place] Presentation Presentation: Vertex [place] Information date/time: 12/22/19 1717 Gender: Female Delivery type: Vaginal, Spontaneous Delivery location: OB Unit Initial disposition: Routine NB Care Details: Delivery Providers Delivering clinician: Lon Garcia MD Other personnel: Provider Role Covering Attending Resident Type Soldering Machine Tender Alaina Miller RN Delivery Nurse Taty Matos RN Registered Nurse Delivery Assist Nurse Practitioner Cord No data filed Placenta Date/time: 12/22/2019 1721 Removal: Spontaneous Appearance: Intact Disposition: Refrigerator [place] Apgars No data filed [place] Measurements Weight: Lacerations No data filed Other Procedures No data filed Poc initiated documented in this encounter INFORMATION SOURCE (unrecogn ized section and content) DATE CREATED AUTHOR 01/01/2020 [facility] DATE CREATED AUTHOR AUTHOR'S ORGANIZ ATION 04/11/2020 [facility] DATE CREATED AUTHOR AUTHOR'S ORGANIZ ATION 08/05/2020 [facility] DATE CREATED AUTHOR AUTHOR'S ORGANIZ ATION 04/10/2022 [facility] Care Teams (unrecognized sec tion and content) Hotbed Operator Relationship Specialty Start Date End Date No, Physician [facility] PCP - General 12/21/19 FOR RECORDS PERTAINING [...] BE BASED ON THE PRIMARY CLINICAL RECORDS. [facility] [employer] [facility]. provides no warranty or guarantee of the accuracy or completeness of information in this document.
[2023-09-03 11:24] LABS: HCG Quantitative <1 mIU/mL
--- NOTE | 2023-09-03 15:43 | SUR.PREOP ---
09/01/23 Pt instructed on procedure, date, time, and prep.
--- NOTE | 2023-09-03 15:46 | PC.NURSE ---
1220 Pt denies any vaginal bleeding increased from before the procedure. Does c/o mild cramping.
== END 2023-09-03 12:25 ==
LOC: LAB 10:53
PROVIDERS: Radiology Diagnostic Radiology; Visit Provider Obstetrics & Gynecology
DX: N97.0 Female infertility associated with anovulation (principal); N97.9 Female infertility, unspecified; E28.2 Polycystic ovarian syndrome
CPT/HCPCS: 36415; 58340; 74740; 84702; Q9966

== ENCOUNTER 2023-09-19 10:49 | Outpatient (OUT) | payer BC, SELFPAY ==
--- OUTSIDE RECORDS SUMMARY | 2023-09-19 10:53 | XMS_ITS | CCD ---
Author Name Unknown Address [address] [place] [address] Organization [facility] Care Team Providers Care Director Field Services Name Role Phone No, Physician Primary Care Provider Unavailabl e RADHALON STALLWORTH FKavon Noriega Admitting Unavailabl e RADHA, LON Noriega Attending Unavailabl e NO, PHYSICIAN Primary Care Unavailable RADHALON STALLWORTH F. SKavon Admitting Unavailabl e RADHA, LON FKavon Noriega Attending Unavailabl e NO, PHYSICIAN Primary Care Unavailable RADHA, LON FKavon Noriega Attending Unavailabl e RADHA, LON FKavon Noriega Attending Unavailabl e RADHALON FKavon Noriega Attending Unavailabl e RADHALON FKavon Noriega Attending Unavailabl e RADHA, LON FKavon Noriega Attending Unavailabl e RADHALON FKavon Noriega Attending Unavailabl e NO, PHYSICIAN [...] Intravenous, Every 6 hours PRN, itching, Starting [facility] 12/22/19 at 1623, Sign and Release For [...] Test Name Value Interpretation Reference Range Facility [id number] 08-05-2020 SARS-CoV-2 Normal [facility] Comment on above: Performed By: #### C OVID #### [facility] [place], [place] [id number] Bounty Hunter: Eliezer Mitchell MD SARS-CoV-2 DETECTED Abnormal [facility] Comment on above: Result Comment: The specimen is POSITIVE for SARS-Cov-2, the novel coronavirus associated with COVID-19. [employer] SARS-CoV-2 for use on the [employer]88[employer] is a real-time RT-PCR test intended [...] this assay. Fact sheet for Healthcare Providers: https://www.fda.gov/media/186108/download Fact sheet for Patients: https://www.fda.gov/media/744824/download METHODOLOGY: RT-PCR Results reported to the appropriate Health Department Performed By: #### C OVID #### [address] [id number] Bounty Hunter: Eliezer Mitchell MD SARS-CoV-2,Rapid Normal [facility] Comment on above: Performed By: #### C OVID #### [facility] [address] [place] [id number] Bounty Hunter: Eliezer Mitchell MD SARS-CoV-2 Source .NASOPHARYNGEAL SWAB Normal [facility] Comment on above: Performed By: #### C OVID #### [address] [place], [place] [id number] Bounty Hunter: Eliezer Mitchell MD [id number] 07-11-2020 SARS-CoV-2 Not Detected Normal Not Detected [facility] Comment on above: Result Comment: (NOT E) This nucleic acid amplification test was developed and its performance characteristics determined by [employer]. Nucleic acid amplification tests include PCR and [...] detected) result in this assay. Performed At: [facility] [address] [facility][1] [place] [id number] Sofiya Arthur MD Ph:[phone] Performed By: #### A COV #### [facility] [address] [place], [place] [id number] Bounty Hunter: Shankar Beal MD CBC WITH AUTO DIFFERENTIALon 12-23-2019 Basophils (Bld) [#/Vol] 0.02 10*3/uL [facility] Basophils/100 WBC (Bld) 0.1 % [facility] Eosinophils (Bld) [#/Vol] 0.09 10*3/uL [facility] Eosinophils/100 WBC (Bld) 0.6 % [facility] Erythrocyte distribution width (RBC) [Entitic vol] 13.3 % 11.6 - 14.8 % [facility] Hematocrit (Bld) [Volume fraction] 33.0 % Low 36 - 46 % [facility] Hemoglobin (Bld) [Mass/Vol] 11.2 g/dL Low 12 - 16 g/dL [facility] Immature granulocytes (Bld) [#/Vol] 0.09 10*3/uL [facility] Immature granulocytes/100 WBC (Bld) 0.60 % [facility] Comment on above: The IG parameter is the percentage of metamyelocytes, myelocytes, and promyelocytes. Interpretation and review of laboratory results Abnormal [facility] Lymphocytes (Bld) [#/Vol] 1.62 10*3/uL [facility] Lymphocytes/100 WBC (Bld) 11.6 % [facility] MCH (RBC) [Entitic mass] 29.6 pg 26 - [address] [facility] MCHC (RBC) [Mass/Vol] 33.9 g/dL 31 - 37 g/dL [facility] MCV (RBC) [Entitic vol] 87.1 fL 80 - [address] [facility] Monocytes (Bld) [#/Vol] 1.03 10*3/uL High [facility] Monocytes/100 WBC (Bld) 7.4 % [facility] Neutrophils (Bld) [#/Vol] 11.10 10*3/uL High [facility] Neutrophils/100 WBC (Bld) 79.7 % [facility] Platelet mean volume (Bld) [Entitic vol] 8.9 fL Low 9 - 15.[address] [facility] Platelets (Bld) [#/Vol] 231 10*3/uL [facility] RBC (Bld) [#/Vol] 3.79 10*6/uL Low [facility] WBC (Bld) [#/Vol] 13.95 10*3/uL [facility] RhIG Evaluationon 12-23-2019 Rh immune globulin candidate (yes/no) Ql RhIG Candidacy [facility] 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 Patient is a candidate for 1 vial of Rh Immune Globulin. [facility] Antibody Identificationon Blood group antibodies identified Nom Anti-Rhogam [facility] The anti-D detected in this patient is presumably caused by a recent Rh Immune Globulin injection.It is unlikely that this represents a clinically significant antibody. [facility] CBCon 12-22-2019 Erythrocyte distribution width (RBC) [Entitic vol] 13.1 % 11.6 - 14.8 % [facility] Hematocrit (Bld) [Volume fraction] 35.7 % Low 36 - 46 % [facility] Hemoglobin (Bld) [Mass/Vol] 12.6 g/dL 12 - 16 g/dL [facility] Interpretation and review of laboratory results Abnormal [facility] MCH (RBC) [Entitic mass] 29.9 pg 26 - [address] [facility] MCHC (RBC) [Mass/Vol] 35.3 g/dL 31 - 37 g/dL [facility] MCV (RBC) [Entitic vol] 84.8 fL 80 - [address] [facility] Platelet mean volume (Bld) [Entitic vol] 9.0 fL 9 - 15.[address] [facility] Platelets (Bld) [#/Vol] 233 10*3/uL [facility] RBC (Bld) [#/Vol] 4.21 10*6/uL [facility] WBC (Bld) [#/Vol] 15.15 10*3/uL High [facility] Draw 4 [place] Top Tubes (MH)on 12-22-2019 ABO and Rh group Nom (Bld) A Negative [facility] Blood group antibody screen Ql Positive [facility] Type and Screenon 12-22-2019 ABO and Rh group Nom (Bld) A Negative [facility] Blood group antibody screen Ql Positive [facility] Specimen Expires 12/25/2019 23:[address] [facility] Vital Signs Date Time Vital Sign Value Performing Clinician Faci lity 12-24-2019 08:13-0400 Body Temperature 97.59 [degF] [facility] 12-24-2019 08:13-0400 BP Diastolic 67 mm[Hg] [facility] 12-24-2019 08:13-0400 BP Systolic 110 mm[Hg] [facility] 12-24-2019 08:13-0400 Pulse (Heart Rate) 78 /min [facility] 12-24-2019 08:13-0400 Pulse Oximetry 98 % [facility] 12-24-2019 08:13-0400 Respiratory Rate 18 /min [facility] 12-22-2019 11:30-0400 BMI (Body Mass Index) 33.41 kg/m2 [facility] 12-22-2019 11:30-0400 Body weight 93.89 kg [facility] 12-22-2019 11:30-0400 Height 167.6 cm [facility] 12-21-2019 16:03-0400 BMI (Body Mass Index) 33.73 kg/m2 [facility] 12-21-2019 16:03-0400 Body weight 94.8 kg [facility] 12-21-2019 16:03-0400 Height 167.6 cm [facility] 12-21-2019 16:02-0400 Body Temperature 99.19 [degF] [facility] 12-21-2019 16:02-0400 BP Diastolic 78 mm[Hg] Lon Garcia [facility] 12-21-2019 16:02-0400 BP Systolic 115 mm[Hg] Lon Garcia [facility] 12-21-2019 16:02-0400 Pulse (Heart Rate) 92 /min Lon Garcia [facility] 12-21-2019 16:02-0400 Pulse Oximetry 98 % Lon Garcia [facility] 12-21-2019 16:02-0400 Respiratory Rate 18 /min Lonsahara Garcia [facility] Encounters Encounter Date Encounter Type Care Provider Facility Start: 08-25-2022 Orders Only Dina Johnston CNM Work Phone: [facility] Obstetrics [facility] Gynecology Comment on above: Anovulation (Primary Dx) Start: 04-04-2022 ambulatory [facility] Start: 08-04-2020 End: 08-05-2020 Patient encounter procedure [facility] Start: 08-04-2020 End: 08-04-2020 Subsequent hospital visit by physician J CARLOS Laboratory Comment on above: Suspected COVID-19 v irus infection; Loss of taste; Loss of smell Start: 07-09-2020 End: 07-10-2020 Patient encounter procedure ANGEL R [facility] Start: 07-09-2020 End: 07-09-2020 Subsequent hospital visit by physician J CARLOS Laboratory Comment on above: Viral illness Start: 02-06-2020 End: 02-07-2020 Patient encounter procedure LON PhamKavon JennKavon RADHA [facility] Start: 12-22-2019 End: 12-24-2019 [facility]: 12-22-2019 End: 12-24-2019 Evaluation and management of inpatient Lonsahara BarajasKavon IbarraRadha Work Phone: [facility] Delivery Start: 12-21-2019 End: 12-21-2019 Patient encounter procedure LON Aleyda BarajasKavon [facility] Start: 12-21-2019 End: 12-21-2019 Subsequent hospital visit by physician Lon Garcia Work Phone: [facility] Start: 11-18-2019 End: 11-18-2019 Patient encounter procedure LON Noriega [facility] Start: 09-27-2019 End: 09-27-2019 Patient encounter procedure LONSAHARA Noriega [facility] Start: 07-19-2019 End: 07-20-2019 Patient encounter procedure LONSAHARA Noriega [facility] Start: 06-10-2019 End: 06-16-2019 Patient encounter procedure LONSAHARA Noriega [facility] Procedures Date Procedure Procedure Detail Performing Clinician [...] examination, annual for health maintenance Wellness Visit [facility] Start: 02-02-2023 Screening for malign ant neoplasm of cervix Pap Smear [facility] Start: 09-18-2022 End: 08-25-2023 Progesterone [Mass/volume] in Serum or Plasma Progesterone Lab Routine Anovulation Expected: 09/18/2022 (Approximate), Expires: 08/25/[address] [facility] Work Phone: Comment on above: Expected: 09/18/2022 (Approximate), Expires: 08/25/2023 Start: 04-17-2022 Influenza vaccination Sequenti al Influenza Vaccine (#1) [facility] Start: 04-17-2020 Influenza vaccination Flu vaccine (# 1) [place], [place] Start: 2012 Screening for malign ant neoplasm of cervix Cervical cancer screen [place], [place] Start: 2010 DTaP/Tdap/Td vaccine (1 - Tdap) DTaP/Tdap/Td vaccine (1 - Tdap) [place], [place] Start: 2009 Hepatitis C screening Hepatitis C Sc reening [facility] Start: 2006 HIV screening HIV screen [place], [place] Start: 2003 Depression screening using PHQ-9 (Patient Health Questionnaire 9) score Depression Screening (PHQ-2/9) [facility] Start: 1992 Varicella vaccine (1 of 2 - 2-dose childhood series) Varicella vaccine (1 of 2 - 2-dose childhood series) [place], [place] Start: 04-09-1992 COVID-19 Vaccine (#1) COVID-19 Vacci ne (#1) [facility] Start: 1991 Tetanus vaccination Tetanus: Every [address] [facility] End: 07-09-2020 COVID-19 Ambulatory COVID-19 Ambulatory Lab Routine Viral illness 1 Occurrences starting 07/09/2020 until 07/09/2020 [place] Comment on above: 1 Occurrences starti ng 07/09/2020 until 07/09/2020 COVID-19 Ambulatory [place], [place] End: 08-04-2020 Covid-19 Ambulatory Covid-19 Ambulatory Lab Routine Suspected COVID-19 virus infection Loss of taste Loss of smell 1 Occurrences starting 08/04/2020 until 08/04/2020 [place], [place] Comment on above: 1 Occurrences starti ng 08/04/2020 until 08/04/2020 Immunizations Immunization Date Immunization Notes Care Provider Lyudmila josuety 12-23-2019 diphtheria, tetanus toxoids and acellular pertussis vaccine, unspecified formulation [facility]-2019 measles, mumps and r ubella virus [facility] 12-[facility]-2019 varicella zoster immune globulin Dominique r [facility] Payers Date Payer Category Payer Unknown [employer] OUT OF [facility] xxxxxxxxxxxxxxx 2018-Present xxxxxxxxxxxxxxx [id number] 2018 Unknown [id number] 2018 Unknown [employer] OUT OF [facility] [id number] 2018-Present [phone] [address] [place] [address] [id number] 1991 Unknown [id number] 1991 Unknown [id number] 1991 Unknown [id number] 1991 Unknown [id number] 1991 Unknown [id number] 1991 Unknown [id number] 1991 Unknown [id number] 1991 Unknown [id number] 1991 Unknown [id number] 1991 Unknown [id number] 1991 Unknown [id number] Social History Date Type Detail Facility Start: 12-21-2019 End: 08-19-2022 Tobacco smoking status NHIS Never smoker [facility] Start: 12-21-2019 End: 08-21-2022 Alcohol intake Ex-drinker (finding) [facility] Start: 03-31-[address] [facility] Start: 1990 [facility] Start: 08-08-2022 End: 08-18-2022 Exposure to SARS-CoV-2 (event) Not sure [facility] Start: 07-09-2020 End: 08-19-2022 Tobacco use and exposure Never used [employer] Start: 07-09-2020 End: 08-04-2020 Alcohol intake Current non-drinker of alcohol (finding) [employer] Evaluation note Note Date & Type Note Facility Evaluation note Diagnosis Anovulation- Primary Female infertility associated with anovulation documented in this encounter 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 Stations Superintendent Expl anation Advance Directives and Livin g Will 12/22/2019 4:16 PM Latest Code Status on File Code Status Date Activated Date Inactivated Comments Full Code 12/23/2019 9:34 AM 12/24/2019 3:33 PM Full Code 12/22/2019 11:42 AM 12/23/2019 9:33 AM Documents on File Type Date Recorded Patient Stations Superintendent Expl anation ACP-Advance Directive ACP-Power of Station Attendant Latest Code Status on File Code Status Date Activated Date Inactivated Comments Full Code 12/23/2019 9:34 AM 12/24/2019 3:33 PM Code Status History Code Status Date Activated Date Inactivated Comments Full Code 12/22/2019 11:42 AM 12/23/2019 9:33 AM Hospital Course * Clei Mayer DO - 12/24/2019 9:10 AM EDT DISCHARGE SUMMARY Patient: Leatha Real Date of : 1990 Site: [facility] Family Provider: Physician Mar Admit Date: [...] mouth daily . Physician(s) Family Provider: Physician No, Phone: None Address: [facility] Follow Up: No follow-up provider specified. Additional Information: Pelvic rest, follow-up in 4-6 weeks. Patient instructions, including activity, were given to the patient/family at discharge. Please seethe After Visit Summary in the electronic medical record for details. Time spent on discharge: < 30 minutes Completed by: Celi Mayer DO on 12/24/19, 9:10 AM documented in this encounter Discharge [...] nausea and vomiting. Call the OB Dept ([phone]) for any questions, problems or concerns. Follow-up : Call our office at [phone] within the first week to schedule a 6 week checkup. THANK YOU : DR GARCIA WELL [facility] AND [facility] OB NURSES AND [...] Problems: Encounter for elective induction of labor Andres Real Girl Leatha [[id number]] Delivery Anesthesia No data filed Operative Delivery No data filed Shoulder Dystocia No data filed Presentation Presentation: Vertex Elverta Information date/time: 12/22/19 1717 Gender: Female Delivery type: Vaginal, Spontaneous Delivery location: OB Unit Initial disposition: Routine NB Care Details: Delivery Providers Delivering clinician: Lon Garcia MD Other personnel: Provider Role Covering Attending Resident Behavioral Health Counselor Alaina Miller RN Delivery Nurse Taty Matos RN Registered Nurse Delivery Assist Nurse Practitioner Cord No data filed Placenta Date/time: 12/22/2019 1721 Removal: Spontaneous Appearance: Intact Disposition: Refrigerator Apgars No data filed Measurements Weight: Lacerations No data filed Other Procedures No data filed Poc initiated documented in this encounter INFORMATION SOURCE (unrecogn ized section and content) DATE CREATED AUTHOR 01/01/2020 [facility] DATE CREATED AUTHOR AUTHOR'S ORGANIZ ATION 04/11/2020 [facility] DATE CREATED AUTHOR AUTHOR'S ORGANIZ ATION 08/05/2020 [facility] Malin Brandan giordano DATE CREATED AUTHOR AUTHOR'S ORGANIZ ATION 04/10/2022 [facility] Care Teams (unrecognized sec tion and content) Director Field Services Relationship Specialty Start Date End Date No, Physician [facility] PCP - General 12/21/19 FOR RECORDS PERTAINING [...] BE BASED ON THE PRIMARY CLINICAL RECORDS. [facility]. provides no warranty or guarantee of the accuracy or completeness of information in this document.
[2023-09-20 08:10] LABS: Progesterone 8.8 ng/mL (.)
== END 2023-09-19 10:50 | disposition home or self-care (01) ==
LOC: LAB 10:51
PROVIDERS: Visit Provider Obstetrics & Gynecology
DX: N97.0 Female infertility associated with anovulation (principal); N97.9 Female infertility, unspecified; E28.2 Polycystic ovarian syndrome
CPT/HCPCS: 36415; 84144

== ENCOUNTER 2023-10-21 16:07 | Outpatient (OUT) | payer BC, SELFPAY ==
--- OUTSIDE RECORDS SUMMARY | 2023-10-21 16:11 | XMS_ITS | CCD ---
Author Name Unknown Address [address] [facility] [address] [place] [address] Organization [facility] Care Team Providers Care Child Care Lead Teacher Name Role Phone No, Physician Primary Care Provider Unavailabl e LON GARCIA Admitting Unavailabl e LON GARCIA Attending Unavailabl e NO, PHYSICIAN Primary Care Unavailable LON GARCIA FKavon Noriega Admitting Unavailabl e RADHALON STALLWORTH Attending Unavailabl e NO, PHYSICIAN Primary Care Unavailable RADHALON STALLWORTH Attending Unavailabl e RADHALON STALLWORTH Attending Unavailabl e RADHALON Attending Unavailabl e RADHALON STALLWORTH Attending Unavailabl e RADHALON STALLWORTH Attending Unavailabl e RADHALON STALLWORTH Attending Unavailabl e NO, PHYSICIAN Primary Care Unavailable Unavailable Primary Care Provider Unavailabl J LUIS Crespo Attending Unavailable NO, PHYSICIAN Primary Care Unavailable No, Physician Primary Care Provider Unavailabl e Unavailable Primary Care Provider Unavailabl e Unavailable Primary Care Provider Unavailabl MIKE Paz Referring Unavailable Medications Current Medications Medication Drug Class(es) Dates Sig (Normalized) Sig (Original) levothyroxine sodium 0.025 mg oral tablet (1 source) l-Thyroxine Start: 06-30-2023 take 1 tablet by mouth before mealtime levothyroxine (SYNTHROID) 25 MCG tablet Indications: Hypothyroidism, unspecified type Take 1 tablet (25 mcg) by mouth in the morning. Take before meals. 30 tablet 2 06/30/2023 Active metFORMIN hydrochloride 500 mg oral tablet (2 sources) Biguanide Start: 05-06-2023 End: 05-05-2024 take 1 tablet by mouth at mealtime metFORMIN (GLUCOPHAGE) 500 MG tablet TAKE 1 TABLET BY MOUTH IN THE MORNING with a meal 0 06/01/2023 Active Vit-Fe Fumarate-FA ( VITAMIN PO) (3 sources) take 1 tablet by mouth once daily Vit-Fe Fumarate-FA ( VITAMIN PO) Take 1 tablet by mouth daily 0 Active vitamin with Ca-Iron-FA 27-1 mg Tab (3 sources) take 1 tablet by mouth once daily vitamin with Ca-Iron-FA 27-1 mg [...] Intravenous, Every 6 hours PRN, itching, Starting [facility] 12/22/19 at 1623, Sign and Release [...] Start: 12-22-2019 End: 12-24-2019 Epidural, Continuous, Starting [facility] 12/22/19 at 1715, Sign and Release Only [...] of smell; Translations: [Loss of smell] Episodic Thyroid disorders (2 sources) Hypothyroidism; Translations: [Hypothyroidism, unspecified] Onset: 09-25-2023 09-25-2023 Chronic Unclassified (4 sources) Patient encounter status; Translations: [Encounter for elective induction of labor] Onset: 12-22-2019 12-22-2019 Viral infection (1 source) Viral disease; Translations: [Viral illness] Episodic Past or Other Problems Problem Classification Problem Date Documented Da te Episodic/Chronic Other and delivery including normal (2 sources) Patient encounter status; Translations: [Encounter for supervision of normal , unspecified, unspecified trimester] Onset: 12-22-2019 12-22-2019 Episodic Results Test Name Value Interpretation Reference Range Facil ity TSH w/reflex to FT4on 2023 Thyroid Stim. Horm. 2.06 uIU/mL Normal 0.30-5.00 [facility] Comment on above: Performed By: #### T SHX #### [facility] [address] [place] [address] [employer]: Apolinar Romero MD TSH with Reflexon 09-25-2023 TSH Qn 2.06 m[IU]/L [facility] ALL PROGESTERONEon 4 PROGESTERONE 8.8 ng/mL . [facility] are Comment on above: Follicular phase 0.1 - 0.9 Luteal phase 1.8 - 23.9 Ovulation phase 0.1 - 12.0 First trimester 11.0 - 44.3 Second trimester 25.4 - 83.3 Third trimester 58.7 - 214.0 Postmenopausal 0.0 - 0.1 Performed at: - [facility] [id number] [employer]: Larry Allison PhD, Phone: [phone] [facility] e CBC WITH AUTO DIFFERENTIALon 12-23-2019 Basophils (Bld) [#/Vol] 0.02 10*3/uL [facility] Basophils/100 WBC (Bld) 0.1 % [facility] Eosinophils (Bld) [#/Vol] 0.09 10*3/uL [facility] Eosinophils/100 WBC (Bld) 0.6 % [facility] Erythrocyte distribution width (RBC) [Entitic vol] 13.3 % 11.6 - 14.8 % [facility] Hematocrit (Bld) [Volume fraction] 33.0 % Low 36 - 46 % [facility] Hemoglobin (Bld) [Mass/Vol] 11.2 g/dL Low 12 - 16 g/dL [facility] Immature granulocytes (Bld) [#/Vol] 0.09 10*3/uL [facility] Immature granulocytes/100 WBC (Bld) 0.60 % [facility] Comment on above: The IG parameter is the percentage of metamyelocytes, myelocytes, and promyelocytes. Interpretation and review of laboratory results Abnormal [facility] Lymphocytes (Bld) [#/Vol] 1.62 10*3/uL [facility] Lymphocytes/100 WBC (Bld) 11.6 % [facility] MCH (RBC) [Entitic mass] 29.6 pg 26 - 34 pg [facility] MCHC (RBC) [Mass/Vol] 33.9 g/dL 31 - 37 g/dL [facility] MCV (RBC) [Entitic vol] 87.1 fL 80 - 100 fL [facility] Monocytes (Bld) [#/Vol] 1.03 10*3/uL High [facility] Monocytes/100 WBC (Bld) 7.4 % [facility] Neutrophils (Bld) [#/Vol] 11.10 10*3/uL High [facility] Neutrophils/100 WBC (Bld) 79.7 % [facility] Platelet mean volume (Bld) [Entitic vol] 8.9 fL Low 9 - 15.5 fL [facility] Platelets (Bld) [#/Vol] 231 10*3/uL [facility] RBC (Bld) [#/Vol] 3.79 10*6/uL Low [facility]alth WBC (Bld) [#/Vol] 13.95 10*3/uL [facility] RhIG Evaluationon 12-23-2019 Rh immune globulin candidate (yes/no) Ql RhIG Candidacy [facility] 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 Patient is a candidate for 1 vial of Rh Immune Globulin. [facility] Antibody Identificationon Blood group antibodies identified Nom Anti-Rhogam [facility] The anti-D detected in this patient is presumably caused by a recent Rh Immune Globulin injection.It is unlikely that this represents a clinically significant antibody. [facility] CBCon 12-22-2019 Erythrocyte distribution width (RBC) [Entitic vol] 13.1 % 11.6 - 14.8 % [facility] Hematocrit (Bld) [Volume fraction] 35.7 % Low 36 - 46 % [facility] Hemoglobin (Bld) [Mass/Vol] 12.6 g/dL 12 - 16 g/dL [facility] Interpretation and review of laboratory results Abnormal [facility] MCH (RBC) [Entitic mass] 29.9 pg 26 - 34 pg [facility] MCHC (RBC) [Mass/Vol] 35.3 g/dL 31 - 37 g/dL [facility] MCV (RBC) [Entitic vol] 84.8 fL 80 - 100 fL [facility] Platelet mean volume (Bld) [Entitic vol] 9.0 fL 9 - 15.5 fL [facility] Platelets (Bld) [#/Vol] 233 10*3/uL [facility] RBC (Bld) [#/Vol] 4.21 10*6/uL [facility] ealt WBC (Bld) [#/Vol] 15.15 10*3/uL [facility] Draw 4 [place] Top Tubes (MH)on 12-22-2019 ABO and Rh group Nom (Bld) A Negative [facility] Blood group antibody screen Ql Positive [facility] Type and Screenon 12-22-2019 ABO and Rh group Nom (Bld) A Negative [facility] Blood group antibody screen Ql Positive [facility] Specimen Expires 12/25/2019 23:59 EST [facility] Vital Signs Date Time Vital Sign Value Performing Clinician Faci lity 12-24-2019 08:13-0400 Body Temperature 97.59 [degF] [facility] 12-24-2019 08:13-0400 BP Diastolic 67 mm[Hg] [facility] 12-24-2019 08:13-0400 BP Systolic 110 mm[Hg] [facility] 12-24-2019 08:13-0400 Pulse (Heart Rate) 78 /min [facility] 12-24-2019 08:13-0400 Pulse Oximetry 98 % [facility] 12-24-2019 08:13-0400 Respiratory Rate 18 /min [facility] 12-22-2019 11:30-0400 BMI (Body Mass Index) 33.41 kg/m2 [facility] 12-22-2019 11:30-0400 Body weight 93.89 kg [facility] 12-22-2019 11:30-0400 [facility] 12-21-2019 16:03-0400 BMI (Body Mass Index) 33.73 kg/m2 Lonmarbella Garcia [facility] 12-21-2019 16:03-0400 Body weight 94.8 kg Lon Radha [facility] 12-21-2019 16:03-0400 Height 167.6 cm Lon [facility] 12-21-2019 16:02-0400 Body Temperature 99.19 [degF] Lon [facility] 12-21-2019 16:02-0400 BP Diastolic 78 mm[Hg] [facility] 12-21-2019 16:02-0400 BP Systolic 115 mm[Hg] [facility] 12-21-2019 16:02-0400 Pulse (Heart Rate) 92 /min [facility] 12-21-2019 16:02-0400 Pulse Oximetry 98 % [facility] 12-21-2019 16:02-0400 Respiratory Rate 18 /min [facility] Encounters Encounter Date Encounter Type Care Provider Facility Start: 09-25-2023 End: 09-26-2023 [facility] Start: 09-25-2023 End: 09-25-2023 Subsequent hospital visit by physician HARIS Laboratory Comment on above: Hypothyroidism, unsp ecified type Start: 09-19-2023 [facility] Result Encounter Twan Orquidea DO Work Phone: [facility] Unsolicited Start: 09-19-2023 [facility] Result Encounter Twan Orquidea DO Work Phone: [facility] Unsolicited Start: 08-25-2022 Orders Only Dina WEBER Work Phone: [facility] Comment on above: Anovulation (Primary Dx) Start: 04-04-2022 ambulatory J LUIS [facility] Start: 08-04-2020 End: 08-04-2020 Subsequent hospital visit by physician [facility] Laboratory Comment on above: Suspected COVID-19 v irus infection; Loss of taste; Loss of smell Start: 07-09-2020 End: 07-09-2020 Subsequent hospital visit by physician [facility] Laboratory Comment on above: Viral illness Start: 02-06-2020 End: 02-07-2020 [facility] [place] [facility] Start: 12-22-2019 End: 12-24-2019 Evaluation and management of inpatient [facility] Start: 12-22-2019 End: 12-24-2019 [facility] and management [facility] Work Phone: [facility] Delivery Start: 12-21-2019 End: 12-21-2019 Patient encounter procedure [facility] Start: 12-21-2019 End: 12-21-2019 Subsequent hospital visit by physician [place] AnkitKavon Hari Radha Work Phone: [facility] Labor & Delivery Start: 11-18-2019 End: 11-18-2019 Patient encounter procedure [facility] Start: 09-27-2019 End: 09-27-2019 Patient encounter procedure [facility] Start: 07-19-2019 End: 07-20-2019 Patient encounter procedure [facility] Start: 06-10-2019 End: 06-16-2019 Patient encounter procedure [facility] Procedures Date Procedure Procedure Detail Performing Clinician Start: 09-25-2023 Assay of thyroid stimulating hormone tsh Mike Levine MD Work Phone: Start: 09-19-2023 ALL PROGESTERONE Twan Orquidea DO Work Phone: Start: 02-03-2020 Microscopic observat ion [Identifier] in Cervix by Cyto stain Dina Johnston CNM Work Phone: Start: 12-23-2019 Complete blood count [...] Treatment Date Care Activity Detail Author Start: 06-30-2024 Depression Screen Depression Screen [facility] Start: 08-19-2023 History and physical examination, annual for health maintenance Wellness Visit [facility] Start: 03-17-2023 Influenza vaccination Flu vaccine (# 1) [facility] Start: 02-02-2023 Screening for malign ant neoplasm of cervix Pap Smear [facility] Start: 09-18-2022 End: 08-25-2023 Progesterone [Mass/volume] in Serum or Plasma Progesterone Lab Routine Anovulation Expected: 09/18/2022 (Approximate), Expires: 08/25/2023 [facility] Work Phone: Comment on above: Expected: 09/18/2022 (Approximate), Expires: 08/25/2023 Start: 04-17-2022 Influenza vaccination Sequenti al Influenza Vaccine (#1) [facility] Start: 2021 Screening for malign ant neoplasm of cervix [facility] Start: 04-17-2020 Influenza vaccination [facility] (# [facility] [place] Start: 2012 Screening for malign ant neoplasm of cervix [facility] Start: 2010 DTaP/Tdap/Td vaccine (1 - Tdap) DTaP/Tdap/Td vaccine (1 - Tdap) [facility] Start: 2009 Hepatitis C screening [facility] Start: 2006 HIV screening HIV screen [facility] Start: 2003 Depression screening using PHQ-9 (Patient Health Questionnaire 9) score Depression Screening (PHQ-2/9) [facility] Start: 1992 Varicella vaccine (1 of 2 - 2-dose childhood series) Varicella vaccine (1 of 2 - 2-dose childhood series) [facility] Start: 04-09-1992 COVID-19 Vaccine (#1) COVID-19 Vacci ne (#1) [facility] Start: 1991 Hepatitis B vaccine (1 of 3 - 3-dose series) Hepatitis B vaccine (1 of 3 - 3-dose series) [facility] Start: 1991 Tetanus vaccination Tetanus: Every 1 0yrs [facility] End: 07-09-2020 COVID-19 Ambulatory COVID-19 Ambulatory Lab Routine Viral illness 1 Occurrences starting 07/09/2020 until 07/09/2020 [place], [place] Comment on above: 1 Occurrences starti ng 07/09/2020 until 07/09/2020 COVID-19 Ambulatory [place], [place] End: 08-04-2020 Covid-19 Ambulatory Covid-19 Ambulatory Lab Routine Suspected COVID-19 virus infection Loss of taste Loss of smell 1 Occurrences starting 08/04/2020 until 08/04/2020 [place], [place] Comment on above: 1 Occurrences starti ng 08/04/2020 until 08/04/2020 Immunizations Immunization Date Immunization Notes Care Provider [facility] 12-23-2019 diphtheria, tetanus toxoids and acellular pertussis vaccine, unspecified formulation [facility] 12-23-2019 measles, mumps and r ubella virus vaccine [facility] 12-23-2019 varicella zoster immune globulin [facility] Payers Date Payer Category Payer Unknown PATRICIA BLACKMONBS OUT OF STATE [facility] xxxxxxxxxxxxxxx 2018-Present xxxxxxxxxxxxxxx [id number] 2018 Unknown [id number] 2018 Unknown [id number] 1991 Unknown [id number] 1990 Unknown [id number] 1991 Unknown [id number] 1991 Unknown [id number] 1991 Unknown [id number] 1991 Unknown [id number] 1991 Unknown [id number] 1991 Unknown [id number] 1991 Unknown [id number] 1991 Unknown [id number] Social History Date Type Detail Facility Start: 12-21-2019 End: 06-30-2023 Tobacco smoking status NHIS Never smoker [facility] Start: 12-21-2019 End: 08-21-2022 Alcohol intake Ex-drinker (finding) [facility] Start: 03-31-2019 [facility] Start: 1990 Sex Assigned At Not on file [facility] Start: 08-08-2022 End: 08-18-2022 Exposure to SARS-CoV-2 (event) Not sure [facility] Start: 07-09-2020 End: 06-30-2023 Tobacco use and exposure Never used [facility] [place] Start: 07-09-2020 End: 06-30-2023 Alcohol intake Current non-drinker of alcohol (finding) [facility] [place] Tobacco smoking stat [facility] Tobacco smoking consumption unknown [facility] Start: 1990 Sex Assigned At Female [facility] Start: 04-13-2023 Gender identity Identifies as female gender (finding) [facility] Start: 04-13-2023 Sexual orientation Choose not to disclose [facility] Start: 06-30-2023 History of Social function [employer] Start: 06-30-2023 Humiliation, Afraid, Rape, and Kick questionnaire [HARK] [facility] Within the last year , have you been afraid of your partner or ex-partner? No [facility] How hard is it for y ou to pay for the very basics like food, housing, medical care, and heating Not hard at all [facility] (I/We) worried mateo er (my/our) food would run out before (I/we) got money to buy more. Never true [facility] Evaluation note Note Date & Type Note Facility Evaluation note Diagnosis Anovulation- Primary Female infertility associated with anovulation documented in this encounter [facility] Evaluation note Note Date & Type Note Facility Evaluation note Diagnosis Hypothyroidism, unspecified type documented in this encounter [facility] Advance Directives No Advanced Directives Records FoundDocuments on File Type Date Recorded Patient Interactive Media Marketing Strategist Expl anation Advance Directives and Livin g Will 12/21/2019 4:16 PM Documents on File Type Date Recorded Patient Interactive Media Marketing Strategist Expl anation Advance Directives and Livin g Will 12/22/2019 4:16 PM Latest Code Status on File Code Status Date Activated Date Inactivated Comments Full Code 12/23/2019 9:34 AM 12/24/2019 3:33 PM Full Code 12/22/2019 11:42 AM 12/23/2019 9:33 AM Documents on File Type Date Recorded Patient Interactive Media Marketing Strategist Expl anation ACP-Advance Directive ACP-Power of International Exchange Coordinator Latest Code Status on File Code Status Date Activated Date Inactivated Comments Full Code 12/23/2019 9:34 AM 12/24/2019 3:33 PM Code Status History Code Status Date Activated Date Inactivated Comments Full Code 12/22/2019 11:42 AM 12/23/2019 9:33 AM Hospital Course * Celi Mayer DO - 12/24/2019 9:10 AM EDT DISCHARGE SUMMARY Patient: Leatha Real Date of : 1990 Site: [facility] Family Provider: Physician Manuel Admit Date: 12/22/2019 Discharge Date/Time: 12/24/19 Midday Disposition: Home Clinical Summary Hospital Course: Leatha Real is a 29 y.o. female patient of Physician Mar with a history of term IUP admitted for labor management. of viable , no complications. GBS negative. RH negative. Discharge Diagnoses: S/P at term, viable , no complications. Surgeries: None Consults: No orders of the defined types were placed in this encounter. Allergies: Patient has no known allergies. Discharge Diet: Condition: Good Discharge Medications: Current Discharge Medication List CONTINUE these medications which have NOT CHANGED Details vitamin with Ca-Iron-FA 27-1 mg Tab Take 1 tablet by mouth daily . Physician(s) Family Provider: Physician Mar, Phone: None Address: [facility] Follow Up: No follow-up provider [...] nausea and vomiting. Call the OB Dept ([phone]) for any questions, problems or concerns. Follow-up : Call our office at [phone] within the first week to schedule a 6 week checkup. THANK YOU : DR GARCIA WELL [facility] AND [facility] OB NURSES AND STAFF WOULD [...] induction of labor Andres Real Girl Leatha [[id number]] Delivery Anesthesia No data filed Operative Delivery No data filed Shoulder Dystocia No data filed [place] Presentation Presentation: Vertex Information date/time: 12/22/19 1717 Gender: Female Delivery type: Vaginal, Spontaneous Delivery location: OB Unit Initial disposition: Routine NB Care Details: Delivery Providers Delivering clinician: Lon Garcia MD Other personnel: Provider Role Covering Attending Resident [employer]ed [employer] Panels Trimmer Alaina Miller RN Delivery Nurse Taty Matos RN Registered Nurse Delivery Assist Nurse Practitioner Cord No data filed Placenta Date/time: 12/22/2019 1721 Removal: Spontaneous Appearance: Intact Disposition: Refrigerator [place] Apgars No data filed Measurements Weight: Lacerations No data filed Other Procedures No data filed Poc initiated documented in this encounter INFORMATION SOURCE (unrecogn ized section and content) DATE CREATED AUTHOR 01/01/2020 [facility] DATE CREATED AUTHOR AUTHOR'S ORGANIZ ATION 04/11/2020 [facility] DATE CREATED AUTHOR AUTHOR'S ORGANIZ ATION 04/10/2022 [facility] DATE CREATED AUTHOR AUTHOR'S ORGANIZ ATION 09/27/2023 Deborah Malin [facility] Care Teams (unrecognized sec tion and content) Child Care Lead Teacher Relationship Specialty Start Date End Date No, Physician [facility] PCP - General 12/21/19 FOR [...] BE BASED ON THE PRIMARY CLINICAL RECORDS. [facility] provides no warranty or guarantee of the accuracy or completeness of information in this document.
[2023-10-23 04:07] LABS: Progesterone 35.8 ng/mL (.)
== END 2023-10-21 16:08 | disposition home or self-care (01) ==
LOC: LAB 16:08
PROVIDERS: Visit Provider Obstetrics & Gynecology
DX: N97.0 Female infertility associated with anovulation (principal); N97.9 Female infertility, unspecified; E28.2 Polycystic ovarian syndrome
CPT/HCPCS: 36415; 84144